=== PATIENT | female | born 1940 | race Caucasian/White ===

== ENCOUNTER 2016-06-25 06:57 | Emergency (ER) | payer OTHER, MEDICARE ==
[2016-06-25 07:19] VITALS: TEMP 97.9; BMI 20.1
--- NOTE | 2016-06-25 07:28 | PDOC ---
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 No fall, no recent trauma. Patient states she suddenly experienced pain initially on her left thigh, approximately 5 days ago. She states that one Tuesday, her pain migrated to down to her proximal knee. She also notes increasing swelling on the left knee. Patient expresses concern as she has a history of DVT x2 on the leg. No chest pain, shortness of breath, unsteady gait. Allergies: Omeprazole. Sulfonamide antibiotics. Past Surgical History: Appendectomy. Shoulder and knee surgery Social History: No tobacco, ETOH and recreational drug use. Primary Care Physician: Dr. Barron Gallegos [phone] <Kathia Traylor - Last Filed: 06/25/16 10:30> <Amy Byrne - Last Filed: 06/25/16 13:58> - General Chief Complaint: Pain, Acute Stated Complaint: PAIN IN LEFT LEG Time Seen by Provider: 06/25/16 07:16 Past History <Kathia Traylor - Last Filed: 06/25/16 10:30> - Past Medical History Anemia: No Asthma: No Cancer: No Cardiac Disorders: No CVA: No COPD: No CHF: No DVT: Yes Dementia: No Diabetes: No GI Disorders: Yes (gerd) Disorders: No HTN: Yes Hypercholesterolemia: Yes Liver Disease: No Seizures: No Thyroid Disease: No Other medical history: DVT X2 LEFT LEG - Surgical History Abdominal Surgery: No Appendectomy: Yes Cardiac Surgery: No Cholecystectomy: No Lung Surgery: No Neurologic Surgery: No Orthopedic Surgery: Yes (SHOULDER, KNEE) - Psycho/Social/Smoking Cessation Hx Anxiety: No Suicidal Ideation: No Smoking Status: No Smoking History: Never smoked Have you smoked in the past 12 months: No Number of Cigarettes Smoked Daily: 0 Information on smoking cessation initiated: No Hx Alcohol Use: No Drug/Substance Use Hx: No Substance Use Type: None Hx Substance Use Treatment: No <Amy Byrne - Last Filed: 06/25/16 13:58> - Past Medical History Allergies/Adverse Reactions: Allergies Allergy/AdvReac Type Severity Reaction Status Date / Time omeprazole Allergy Verified 06/25/16 07:13 Sulfa (Sulfonamide Allergy Verified 06/25/16 07:13 Antibiotics) [Sulfa(Sulfonamide Antibiotics)] Home Medications: Ambulatory Orders Losartan Potassium 100 mg PO HS 02/11/16 Losartan Potassium [Cozaar -] 50 mg PO AM 02/11/16 Lubiprostone [Amitiza] 24 mcg PO BID 02/11/16 Simvastatin [Zocor -] 20 mg PO HS 02/11/16 Warfarin Sodium [Coumadin] 2.5 mg PO DAILY 02/11/16 Metoprolol Succinate [Toprol Xl -] 25 mg PO DAILY 06/25/16 Ranitidine [Zantac -] 150 mg PO BID 06/25/16 Review of Systems - Review of Systems Able to Perform ROS?: Yes Comments:: 06/25/16 07:54 GENERAL/CONSTITUTIONAL: No fever or chills. No weakness. MUSCULOSKELETAL: Yes: +Left leg pain. No neck or back pain. <Kathia Traylor - Last Filed: 06/25/16 10:30> *Physical Exam - Vital Signs Last Vital Signs Temp Pulse Resp BP Pulse Ox 97.9 F 94 H 18 133/95 99 06/25/16 07:10 06/25/16 07:10 06/25/16 07:10 06/25/16 07:10 06/25/16 07:10 <Kathia Traylor - Last Filed: 06/25/16 10:30> - Vital Signs Last Vital Signs Temp Pulse Resp BP Pulse Ox 97.9 F 94 H 18 133/95 99 06/25/16 07:10 06/25/16 07:10 06/25/16 07:10 06/25/16 07:10 06/25/16 07:10 - Physical Exam Comments: GENERAL: Awake, alert, and fully oriented, in no acute distress HEAD: No signs of trauma EXTREMITIES: L knee with mod effusion, dec ROM due to pain. No ligamentous laxity. No warmth, erythema. +Tenderness to L posterior knee. Remainder of extremities with normal range of motion, no edema. No clubbing or cyanosis. No cords, erythema. No calf tenderness NEUROLOGICAL: Cranial nerves II through XII grossly intact. Normal speech, normal gait SKIN: Warm, Dry, normal turgor, no rashes or lesions noted. <Amy Byrne - Last Filed: 06/25/16 13:58> ED Treatment Course - LABORATORY CBC & Chemistry Diagram: 06/25/16 07:50 06/25/16 07:50 - RADIOLOGY Radiograph Interpretation: 06/25/16 10:30 EXAM: RAD/KNEE 3 POS-LEFT IMPRESSION: X-ray of the left knee, 3 views. There are mild osteoarthritic changes in the knee joint. Faint calcification of the medial and to a lesser extent lateral knee joint consistent with chondrocalcinosis. There are minimal osteoarthritic changes involving the patellofemoral joint . A small suprapatellar joint effusion is present. The alignment is satisfactory without evidence of a fracture or dislocation EXAM: US/DUPLEX VASCUL US-1 LEG Pain. IMPRESSION: Left leg Doppler ultrasound. Grayscale, pulsed Doppler and color Doppler interrogation of the left lower extremity deep venous system was performed. The left common femoral vein, superficial femoral vein, popliteal and posterior tibial vein were identified with a normal phasic wave form, adequate compressibility and adequate response to augmentation. Visualized portion of the greater saphenous and deep femoral vein are patent. No Mathews's cyst is identified within the popliteal fossa Note is made of suprapatellar joint effusion <Kathia Traylor - Last Filed: 06/25/16 10:30> - LABORATORY CBC & Chemistry Diagram: 06/25/16 07:50 06/25/16 07:50 <Amy Byrne - Last Filed: 06/25/16 13:58> Medical Decision Making - Medical Decision Making Patient declined pain medication. The effusion may possibly be a hemarthrosis, however, INR is not supratherapeutic. Knee is not erythematous or warm. Recommended outpatient ortho f/u. <Amy Byrne - Last Filed: 06/25/16 13:58> *DC/Admit/Observation/Transfer - Attestations Scribe Attestion: 06/25/16 08:14 Documentation prepared by Kathia Traylor, acting as medical office secretary for Amy Byrne MD. <KymberlyKathia - Last Filed: 06/25/16 10:30> - Discharge Dispostion Admit: No <Amy Byrne - Last Filed: 06/25/16 13:58> Diagnosis at time of Disposition: Knee pain Qualifiers: Laterality: left Chronicity: acute Qualified Code(s): M25.562 - Pain in left knee - Discharge Dispostion Disposition: HOME Condition at time of disposition: Stable - Referrals Referrals: Kelechi Milian MD [Staff Physician] - Barron Gallegos MD [Primary Care Provider] - Glen Morales MD [Staff Physician] - - Patient Instructions Printed Discharge Instructions: DI for Knee Pain
[2016-06-25 08:10] LABS: BASOPHIL 0.7 % (0-2.0); EOSINOPHIL 1.8 % (0-4.5); MCHC 33.8 g/dl (32.0-36.0); MEAN CELL VOLUME 88.7 fl (80-96); MEAN PLT VOLUME 7.6 fl (7.5-11.1); NEUTROPHILS 68.5 % (42.8-82.8); PLATELET COUNT 295 K/MM3 (134-434); RDW 12.9 % (11.6-15.6)
[2016-06-25 08:46] LABS: INR 2.49 (0.82-1.09); PROTHROMBIN TIME (PATIENT) 27.9 SEC (9.98-11.88)
[2016-06-25 09:03] LABS: ALBUMIN 3.5 g/dl (3.4-5.0); ALK PHOS 86 U/L (45-117); ANION GAP 10 (8-16); BILIRUBIN,TOTAL 0.4 mg/dL (0.2-1.0); CALCIUM 8.8 mg/dL (8.5-10.1); CO2 25 mmol/L (21-32); CREATININE 0.7 mg/dL (0.55-1.02); GLUCOSE,RANDOM 81 mg/dL (74-106); SGOT/AST 20 U/L (15-37); SGPT/ALT 23 U/L (12-78); TOT PROT 6.7 g/dl (6.4-8.2)
[2016-06-25 10:17] VITALS: BP 135/88; PULSE 85
== END 2016-06-25 10:30 | disposition home or self-care (01) ==
LOC: JER 06:57
DX: M79.605 Pain in left leg (principal); K21.9 Gastro-esophageal reflux disease without esophagitis; I10 Essential (primary) hypertension; E78.00 Pure hypercholesterolemia, unspecified; Z86.718 Personal history of other venous thrombosis and embolism; Z79.01 Long term (current) use of anticoagulants
CPT/HCPCS: 36415; 73562-TC-LT; 80053; 85025; 85610; 93971-TC; 99283-25

== ENCOUNTER → 2016-11-09 | Emergency (ER) | payer OTHER, MEDICARE ==
[~2016-11-09] MED LIST: SODIUM CHLORIDE 1,000 ML IV STA
--- NOTE | 2016-11-09 10:38 | PDOC ---
History of Present Illness - General History Source: Patient Exam Limitations: No Limitations - History of Present Illness Initial Comments: 11/09/16 11:07 The patient is a 76-year-old woman, with a significant past medical history of hypertension, hypercholesterolemia, left lower extremity deep venous thrombosis x2 (on Coumadin) and gastroesophageal reflux disease who presents to the emergency department via EMS with complaints of nausea and vomiting. Patient states that she was in her usual state of health this morning, when she proceeded to attend [employer]. She states that while she was at [employer], she felt slightly lightheaded and nauseous. She also rpeorts one episode of vomiting. She denies any abdominal pain, diarrhea, constipation, urinary complaints, fever , chills. She reports that she had her INR recently checked which was low to a reportedly 1.5, therefore she took 5mg of her Coumadin yesterday and this morning. She denies fever, chills, diaphoresis, generalized weakness. She denies chest pain, shortness of breath, cough Allergies: Omeprazole. Sulfonamide antibiotics. Past Surgical History: Appendectomy. Shoulder and knee surgery. Social History: No tobacco, EtOH and recreational drug use. Primary Care Physician: Dr. Barron Gallegos [phone] <Kathia Traylor - Last Filed: 11/09/16 12:29> <Amy Byrne - Last Filed: 11/09/16 12:33> - General Chief Complaint: Nausea/Vomiting Stated Complaint: VOMITING Time Seen by Provider: 11/09/16 10:29 Past History <Kathia Traylor - Last Filed: 11/09/16 12:29> - Past Medical History Anemia: No Asthma: No Cancer: No Cardiac Disorders: No CVA: No COPD: No CHF: No DVT: Yes Dementia: No Diabetes: No GI Disorders: Yes (gerd) Disorders: No HTN: Yes Hypercholesterolemia: Yes Liver Disease: No Seizures: No Thyroid Disease: No - Surgical History Abdominal Surgery: No Appendectomy: Yes Cardiac Surgery: No Cholecystectomy: No Lung Surgery: No Neurologic Surgery: No Orthopedic Surgery: Yes (SHOULDER, KNEE) - Psycho/Social/Smoking Cessation Hx Anxiety: No Suicidal Ideation: No Smoking Status: No Smoking History: Never smoked Have you smoked in the past 12 months: No Number of Cigarettes Smoked Daily: 0 Hx Alcohol Use: No Drug/Substance Use Hx: No Substance Use Type: None Hx Substance Use Treatment: No <Amy Byrne - Last Filed: 11/09/16 12:33> - Past Medical History Allergies/Adverse Reactions: Allergies Allergy/AdvReac Type Severity Reaction Status Date / Time omeprazole Allergy Verified 11/09/16 10:51 Sulfa (Sulfonamide Allergy Verified 11/09/16 10:51 Antibiotics) [Sulfa(Sulfonamide Antibiotics)] Home Medications: Ambulatory Orders Losartan Potassium 100 mg PO HS 02/11/16 Losartan Potassium [Cozaar -] 50 mg PO AM 02/11/16 Lubiprostone [Amitiza] 24 mcg PO BID 02/11/16 Simvastatin [Zocor -] 20 mg PO HS 02/11/16 Warfarin Sodium [Coumadin] 2.5 mg PO DAILY 02/11/16 Metoprolol Succinate [Toprol Xl -] 25 mg PO DAILY 06/25/16 Ranitidine [Zantac -] 150 mg PO BID 06/25/16 Ondansetron [Zofran -] 4 mg PO TID PRN #21 tablet 11/09/16 Review of Systems - Review of Systems Able to Perform ROS?: Yes Comments:: 11/09/16 11:08 GENERAL/CONSTITUTIONAL: No fever or chills. No weakness. HEAD, EYES, EARS, NOSE AND THROAT: No change in vision. No ear pain or discharge. No sore throat. CARDIOVASCULAR: No chest pain or shortness of breath. RESPIRATORY: No cough, wheezing, or hemoptysis. GASTROINTESTINAL: Yes: Nausea.Vomiting. No diarrhea or constipation. GENITOURINARY: No dysuria, frequency, or change in urination. MUSCULOSKELETAL: No joint or muscle swelling or pain. No neck or back pain. SKIN: No rash NEUROLOGIC: Yes: Lightheadedness. No headache, vertigo, loss of consciousness, or change in strength/sensation. ENDOCRINE: No increased thirst. No abnormal weight change. HEMATOLOGIC/LYMPHATIC: Yes: history of blood clots. No anemia, easy bleeding. ALLERGIC/IMMUNOLOGIC: No hives or skin allergy. <Kathia Traylor - Last Filed: 11/09/16 12:29> *Physical Exam - Vital Signs Last Vital Signs Temp Pulse Resp BP Pulse Ox 98.1 F 54 L 18 160/52 100 11/09/16 10:42 11/09/16 10:42 11/09/16 10:42 11/09/16 11:05 11/09/16 10:42 - Physical Exam Comments: 11/09/16 11:09 GENERAL: Awake, alert, and fully oriented, in no acute distress HEAD: No signs of trauma EYES: PERRLA, EOMI, sclera anicteric, conjunctiva clear ENT: Auricles normal inspection, hearing grossly normal, nares patent, oropharynx clear without exudates. Moist mucosa NECK: Normal ROM, supple, no lymphadenopathy, JVD, or masses LUNGS: Breath sounds equal, clear to auscultation bilaterally. No wheezes, and no crackles HEART: Regular rate and rhythm, normal S1 and S2, no murmurs, rubs or gallops ABDOMEN: Soft, nontender, normoactive bowel sounds. No guarding, no rebound. No masses EXTREMITIES: Normal range of motion, no edema. No clubbing or cyanosis. No cords, erythema, or tenderness NEUROLOGICAL: Cranial nerves II through XII grossly intact. Normal speech, normal gait <Kathia Traylor - Last Filed: 11/09/16 12:29> ED Treatment Course - LABORATORY CBC & Chemistry Diagram: 11/09/16 10:38 11/09/16 10:38 <Kathia Traylor - Last Filed: 11/09/16 12:29> - LABORATORY CBC & Chemistry Diagram: 11/09/16 10:38 11/09/16 10:38 <Amy Byrne - Last Filed: 11/09/16 12:33> Medical Decision Making - Medical Decision Making 11/09/16 12:33 Pt reports no nausea, no abd pain. Abd is soft and benign, no signs of acute abdomen. Stable for DC home. <Amy Byrne - Last Filed: 11/09/16 12:33> *DC/Admit/Observation/Transfer - Attestations Scribe Attestion: 11/09/16 11:09 Documentation prepared by Kathia Traylor, acting as forensic medical examiner for Amy Byrne MD. <Kathia Traylor - Last Filed: 11/09/16 12:29> - Discharge Dispostion Admit: No <Amy Byrne Last Filed: 11/09/16 12:33> Diagnosis at time of Disposition: Vomiting Qualifiers: Vomiting type: unspecified Vomiting Intractability: non-intractable Nausea presence: with nausea Qualified Code(s): R11.2 - Nausea with vomiting, unspecified - Discharge Dispostion Disposition: HOME Condition at time of disposition: Improved - Prescriptions Prescriptions: Ondansetron [Zofran -] 4 mg PO TID PRN #21 tablet PRN Reason: Nausea And/Or Vomiting - Referrals Referrals: Barron Gallegos MD [Primary Care Provider] - - Patient Instructions Printed Discharge Instructions: DI for Vomiting -- Adult
[2016-11-09 11:10] VITALS: BMI 18.8
[2016-11-09 11:22] LABS: BASOPHIL 0.8 % (0-2.0); EOSINOPHIL 2.1 % (0-4.5); MCH 29.4 pg (25.7-33.7); MEAN CELL VOLUME 88.9 fl (80-96); MEAN PLT VOLUME 7.9 fl (7.5-11.1); NEUTROPHILS 70.1 % (42.8-82.8); PLATELET COUNT 258 K/MM3 (134-434); RDW 13.3 % (11.6-15.6); URINE APPEARANCE CLEAR; URINE BILIRUBIN NEGATIVE (NEGATIVE); URINE BLOOD NEGATIVE (NEGATIVE); URINE COLOR YELLOW; URINE GLUCOSE (UA) NEGATIVE (NEGATIVE); URINE KETONE NEGATIVE (NEGATIVE); URINE LEUK ESTERASE NEGATIVE (NEGATIVE); URINE NITRITE NEGATIVE (NEGATIVE); URINE PROTEIN NEGATIVE (NEGATIVE); URINE UROBILINOGEN NEGATIVE E.U./dl (0.2-1.0); WHITE BLOOD COUNT 6.4 K/mm3 (4.0-10.0)
[2016-11-09 11:45] LABS: ALBUMIN 3.3 g/dl (3.4-5.0); ANION GAP 6 (8-16); BILIRUBIN,TOTAL 0.2 mg/dL (0.2-1.0); CALCIUM 9.2 mg/dL (8.5-10.1); CO2 31 mmol/L (21-32); COCKROFT - GAULT 51.935; CREATININE 0.7 mg/dL (0.55-1.02); GLUCOSE,RANDOM 101 mg/dL (74-106); SGOT/AST 22 U/L (15-37); SGPT/ALT 23 U/L (12-78); TOT PROT 6.2 g/dl (6.4-8.2)
[2016-11-09 11:46] LABS: ALK PHOS 59 U/L (45-117)
--- NOTE | 2016-11-09 11:49 | EKG ---
Test Reason : Blood Pressure : / mmHG Vent. Rate : 057 BPM Atrial Rate : 057 BPM P-R Int : 148 ms QRS Dur : 078 ms QT Int : 444 ms P-R-T Axes : 056 031 062 degrees QTc Int : 432 ms SINUS BRADYCARDIA OTHERWISE NORMAL ECG WHEN COMPARED WITH ECG OF 11-FEB-2016 13:57, NO SIGNIFICANT CHANGE WAS FOUND Confirmed by FERNANDO HYLTON MD ([id number]) on 11/09/2016 11:49:18 AM Referred By: Confirmed By:FERNANDO HYLTON MD
[2016-11-09 11:56] LABS: INR 1.91 (0.82-1.09); PROTHROMBIN TIME (PATIENT) 21.3 SEC (9.98-11.88)
[2016-11-09 12:26] VITALS: BP 127/77; PULSE 74; TEMP 98.4
== END | disposition home or self-care (01) ==
LOC: JER 10:22
DX: R11.2 Nausea with vomiting, unspecified (principal); I10 Essential (primary) hypertension; E78.00 Pure hypercholesterolemia, unspecified; I82.402 Acute embolism and thrombosis of unspecified deep veins of left lower extremity; K21.9 Gastro-esophageal reflux disease without esophagitis; Z79.01 Long term (current) use of anticoagulants
CPT/HCPCS: 36415; 71020-TC; 80053; 81003; 83690; 85025; 85610; 93005; 93010; 99284-25

== ENCOUNTER 2016-11-17 09:41 | Observation (INO) | payer OTHER, MEDICARE ==
[2016-11-17] MEDS: ASPIRIN 81 MG CHEWABLE TABLETS PO ONE ×2 (10:38→10:43)
[2016-11-17] MEDS ORDERED: ASPIRIN 81 MG CHEWABLE TABLETS ONE (10:39)
--- NOTE | 2016-11-17 10:50 | PDOC ---
History of Present Illness - General History Source: Patient Exam Limitations: No Limitations <Skinny Campbell - Last Filed: 11/17/16 11:28> <Gideon Mendieta - Last Filed: 11/17/16 13:36> - General Chief Complaint: Chest Pain Stated Complaint: CHEST PAIN Time Seen by Provider: 11/17/16 09:48 - History of Present Illness Initial Comments: 11/17/16 11:28 The patient is a 76 year old female, BIBA with a significant past medical history of HTN, hypercholesterolemia LLE DVT x2 (on coumadin), and GERD who presents to the emergency department with an episode of lightheadedness, chest pressure, UE numbness/tingling, and sweating today. The patient reports walking around in the yard with her , and upon entering her house she reports having being weakness, chest pressure and profuse sweating. She reports this episode lasted about 45 mins, throughout her ambulance transport into the ER, and notes still some chest pressure upon ED arrival. She reports during this episode taking her BP noting it to be 90/72. She denies any previous strenuous activity today. She reports having a similar episode last year in December and had a nuclear stress test. Pt denies any current complaints states she feels almost back to normal currently . She also notes weight loss of 20 pounds over the past month and is being evaluated by her PMD for this. She denies any dietary changes or increase in exercise. She denies recent fevers, chills, headache or dizziness. She denies recent nausea, vomit, diarrhea or constipation. She denies recent dysuria, frequency, urgency or hematuria. Allergies: NKA Past surgical history: None reported. Social history: Nonsmoker. Denies EtOH use and recreational drug use. Primary Care Physician: Dr Bonilla Family History: Father of [place] [employer] Machine Operator: (Skinny Campbell) Past History <Skinny Campbell - Last Filed: 11/17/16 11:28> - Past Medical History Anemia: No Asthma: No Cancer: No Cardiac Disorders: No CVA: No COPD: No CHF: No DVT: Yes Dementia: No Diabetes: No GI Disorders: Yes (gerd) Disorders: No HTN: Yes Hypercholesterolemia: Yes Liver Disease: No Seizures: No Thyroid Disease: No - Surgical History Abdominal Surgery: No Appendectomy: Yes Cardiac Surgery: No Cholecystectomy: No Lung Surgery: No Neurologic Surgery: No Orthopedic Surgery: Yes (SHOULDER, KNEE) - Psycho/Social/Smoking Cessation Hx Anxiety: No Suicidal Ideation: No Smoking Status: No Smoking History: Never smoked Have you smoked in the past 12 months: No Number of Cigarettes Smoked Daily: 0 Information on smoking cessation initiated: No Hx Alcohol Use: No Drug/Substance Use Hx: No Substance Use Type: None Hx Substance Use Treatment: No <Gideon Mendieta - Last Filed: 11/17/16 13:36> - Past Medical History Allergies/Adverse Reactions: Allergies Allergy/AdvReac Type Severity Reaction Status Date / Time omeprazole Allergy Verified 11/09/16 10:51 Sulfa (Sulfonamide Allergy Verified 11/09/16 10:51 Antibiotics) [Sulfa(Sulfonamide Antibiotics)] Home Medications: Ambulatory Orders Losartan Potassium 100 mg PO HS 02/11/16 Losartan Potassium [Cozaar -] 50 mg PO AM 02/11/16 Lubiprostone [Amitiza] 24 mcg PO BID 02/11/16 Simvastatin [Zocor -] 20 mg PO HS 02/11/16 Warfarin Sodium [Coumadin] 2.5 mg PO DAILY 02/11/16 Metoprolol Succinate [Toprol Xl -] 25 mg PO DAILY 06/25/16 Ranitidine [Zantac -] 150 mg PO BID 06/25/16 Ondansetron [Zofran -] 4 mg PO TID PRN #21 tablet 11/09/16 Cardiac Specific PMH - Complaint Specific PMHX Pacemaker: No <Gideon Mendieta - Last Filed: 11/17/16 13:36> Review of Systems - Review of Systems Able to Perform ROS?: Yes <Skinny Campbell - Last Filed: 11/17/16 11:28> <Gideon Mendieta - Last Filed: 11/17/16 13:36> - Review of Systems Comments:: 11/17/16 11:28 CONSTITUTIONAL: No reported: Fever, Chills, Diaphoresis, Generalized Weakness, Malaise, Loss of Appetite HEENT: No reported: Rhinorrhea, Nasal Congestion, Throat Pain, Throat Swelling, Difficulty Swallowing, Mouth Swelling, Ear Pain, Eye Pain, Visual Changes CARDIOVASCULAR: +chest pressure. No reported: Syncope, Palpitations, Irregular Heart Rate, Lightheadedness, Peripheral Edema RESPIRATORY: +SOB. No reported: Cough, Wheezing, Stridor, Hemoptysis GASTROINTESTINAL: No reported: Abdominal pain, Abdominal Distension, Nausea, Vomiting, Diarrhea, Constipation, Melena, Hematochezia GENITOURINARY: No reported: Dysuria, Frequency, Urgency, Hesitancy, Flank Pain, Genital Pain MUSCULOSKELETAL: No reported: Myalgia, Arthralgia, Joint Swelling, Back pain, Neck Pain SKIN: No reported: Rash, Itching, Pallor HEMATOLOGIC/IMMUNOLOGIC: No reported: Easy Bleeding, Easy Bruising, Lymphadenopathy, Frequent infections ENDOCRINE: +Weight loss. No reported: Unexplained Weight Gain, Heat Intolerance, Cold Intolerance NEUROLOGIC: No reported: Headache, Focal Weakness, Paresthesias, Vertigo, Lightheadedness, Unsteady Gait, Seizure, Mental Status Changes, Incontinence PSYCHIATRIC: No reported: Anxiety, Depression (Skinny Campbell) *Physical Exam <Skinny Campbell - Last Filed: 11/17/16 11:28> <Gideon Mendieta - Last Filed: 11/17/16 13:36> - Vital Signs Last Vital Signs Temp Pulse Resp BP Pulse Ox 97.4 F L 63 24 164/72 100 11/17/16 09:45 11/17/16 09:45 11/17/16 09:45 11/17/16 09:45 11/17/16 09:45 - Physical Exam Comments: 11/17/16 11:28 GENERAL: The patient is awake, alert, and fully oriented, Nontoxic - in no acute distress. HEAD: Normocephalic, atraumatic. EYES: extraocular movements intact, sclera anicteric, conjunctiva clear. ENT: Normal voice, Moist mucous membranes. NECK: Normal range of motion, supple LUNGS: Breath sounds equal, clear to auscultation bilaterally. No wheezes, no rhonchi, no rales. HEART: Regular rate and rhythm, without murmur, rub or gallop. ABDOMEN: Soft, nontender, normoactive bowel sounds. No guarding, no rebound.No CVA tenderness EXTREMITIES: Normal range of motion, no edema. No clubbing or cyanosis. No cords , erythema, or tenderness. NEUROLOGICAL: No facial asymmetry, Normal speech. PSYCH: Normal mood, normal affect. SKIN: Warm, Dry, normal turgor. (Skinny Campbell) Heart Score/ECG Review <Skinny Campbell - Last Filed: 11/17/16 11:28> <Gideon Mendieta - Last Filed: 11/17/16 13:36> - ECG Impressions Comment:: 11/17/16 11:40 Twelve-lead EKG was performed and reviewed by me. There is normal sinus rhythm with a normal rate. Rate is 63 The axis is normal. The intervals are normal. There is normal R wave progression There are no ST or T wave abnormalities. Impression: Normal twelve-lead EKG (Gideon Mendieta) ED Treatment Course - LABORATORY CBC & Chemistry Diagram: 11/17/16 11:20 11/17/16 11:20 <Skinny Campbell - Last Filed: 11/17/16 11:28> - LABORATORY CBC & Chemistry Diagram: 11/17/16 11:20 11/17/16 11:20 <Gideon Mendieta - Last Filed: 11/17/16 13:36> - ADDITIONAL ORDERS Additional order review: Laboratory Results 11/17/16 11/17/16 11:20 11:20 INR 2.87 H D Sodium 139 Potassium 4.6 Chloride 103 Carbon Dioxide 26 Anion Gap 10 BUN 14 D Creatinine 0.8 D Creat Clearance w eGFR > 60 Random Glucose 151 H D Calcium 9.2 Magnesium 1.7 L Total Bilirubin 0.5 D AST 23 ALT 22 Alkaline Phosphatase 79 D Creatine Kinase 83 Troponin I < 0.02 Total Protein 6.5 Albumin 3.2 L 11/17/16 11:20 RBC 5.04 MCV 88.8 MCHC 32.9 RDW 13.1 MPV 8.0 Neutrophils % 54.5 D Lymphocytes % 34.0 D Monocytes % 7.7 Eosinophils % 2.9 Basophils % 0.9 - RADIOLOGY Radiology Studies Ordered: Category Date Time Status CHEST X-RAY PORTABLE* [RAD] Stat Radiology 11/17/16 10:18 Completed - Medications Given in the ED: ED Medications Discontinued Medications Generic Name Dose Route Start Last Admin Trade Name Freq PRN Reason Stop Dose Admin Aspirin 162 mg 11/17/16 10:17 11/17/16 10:43 Asa - PO 11/17/16 10:18 Not Given ONCE ONE Medical Decision Making <Skinny Campbell - Last Filed: 11/17/16 11:28> <Gideon Mendieta - Last Filed: 11/17/16 13:36> - Medical Decision Making 11/17/16 10:42 76y F hx of BIBA hx of htn, hl, DVT on coumadin, GERD presents with episode of diaphoresis, cp, sob lasting approx 45 min this morning after coming [place] in from the [place]. pt currently asymptomatic. pt does note that when she first arrived and received the ekg she felt the sypmtoms. consider possible acs vs vagal episode will obtainta trops, ekg to screen for acs cxr labs will reassess and discuss with dr. altamirano regarding disposition A portion of this note was documented by scribe services under my direction. I have reviewed the details of the note, within reason, and agree with the documentation with the following case summary and management plan written by me 11/17/16 12:[address] barahona he will see the pt 11/17/16 13:[address] sosac requested obseration will notify dr. eliana matute for tele 11/17/16 13:[address] lopez agree with observation Case discussed in detail with admitting physician including history, physical exam and ancillary studies. Admitting physician has assumed care for the patient, will follow all pending diagnostics and will complete the evaluation and treatment. (Gideon Mendieta) *DC/Admit/Observation/Transfer <Skinny Campbell - Last Filed: 11/17/16 11:28> - Discharge Dispostion Admit: Yes <Gideon Mendieta - Last Filed: 11/17/16 13:36> Diagnosis at time of Disposition: Chest pain Qualifiers: Chest pain type: unspecified Qualified Code(s): R07.9 - Chest pain, unspecified - Discharge Dispostion Condition at time of disposition: Stable - Referrals Referrals: Barron Gallegos MD [Primary Care Provider] - - Patient Instructions Printed Discharge Instructions: DI for Chest Pain - Attestations Scribe Attestion: 11/17/16 11:28 Documentation prepared by Skinny Campbell, acting as medical management trainer for Gideon Mendieta MD. (Skinny Campbell)
[2016-11-17 11:33] LABS: BASOPHIL 0.9 % (0-2.0); EOSINOPHIL 2.9 % (0-4.5); MCH 29.2 pg (25.7-33.7); MCHC 32.9 g/dl (32.0-36.0); MEAN CELL VOLUME 88.8 fl (80-96); NEUTROPHILS 54.5 % (42.8-82.8); PLATELET COUNT 314 K/MM3 (134-434); RDW 13.1 % (11.6-15.6); WHITE BLOOD COUNT 6.8 K/mm3 (4.0-10.0)
[2016-11-17 11:48] LABS: INR 2.87 (0.82-1.09); PROTHROMBIN TIME (PATIENT) 32.2 SEC (9.98-11.88)
[2016-11-17 11:55] LABS: ALBUMIN 3.2 g/dl (3.4-5.0); ANION GAP 10 (8-16); BILIRUBIN,TOTAL 0.5 mg/dL (0.2-1.0); CALCIUM 9.2 mg/dL (8.5-10.1); CO2 26 mmol/L (21-32); CREATININE 0.8 mg/dL (0.55-1.02); GLUCOSE,RANDOM 151 mg/dL (74-106); SGPT/ALT 22 U/L (12-78); TOT PROT 6.5 g/dl (6.4-8.2)
[2016-11-17 11:58] LABS: ALK PHOS 79 U/L (45-117); TROPONIN I < 0.02 ng/ml (0.00-0.05)
--- NOTE | 2016-11-17 12:11 | CON.CARD ---
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 The patient reports walking around in the yard with her , and upon entering her house she reports having being weakness, chest pressure and profuse sweating. She reports this episode lasted about 45 mins, throughout her ambulance transport into the ER, and notes still some chest pressure upon ED arrival. She reports during this episode taking her BP noting it to be 90/72. She denies any previous strenuous activity today. She reports having a similar episode last year in December and had a nuclear stress test. Pt denies any current complaints states she feels almost back to normal currently . She also notes weight loss of 20 pounds over the past month and is being evaluated by her PMD for this. She denies any dietary changes or increase in exercise. She denies recent fevers, chills, headache or dizziness. She denies recent nausea, vomit, diarrhea or constipation. She denies recent dysuria, frequency, urgency or hematuria. Allergies: NKA Past surgical history: None reported. Social history: Nonsmoker. Denies EtOH use and recreational drug use. Primary Care Physician: Dr Bonilla Family History: Father of [place] [employer]: ([facility]) - History Source History Provided By: Patient, Family Member, Medical Record - Past Medical History Cardio/Vascular: Yes: Deep Vein Thrombosis, HTN, Hyperlipdemia. No: AFIB, Aneurysm, Aortic Insufficiency, Aortic Stenosis, CAD, CHF, [place], Mitral Insufficiency, Mitral Stenosis, Murmur, Pulmonary Hypertension, Other Gastrointestinal: Yes: GERD. No: Ascites, Cancer, Constipation, Crohn's Disease , Diverticulitis, Diverticulosis, Esophageal Varices, Gastritis, GI Bleed, Hemorrhoids, Hiatal Hernia, Inflamatory Bowel Disease, Irritable Bowel Disease, Pancreatitis, Peptic Ulcer Disease, Ulcerative Colitis, Other Musculoskeletal: Yes: Chronic low back pain, Osteoarthritis ENT: Yes: Other (tinnitus) Endocrine: Yes: Other (Developed hypotension and electolyte changes while being tapered off from prednisone) - Past Surgical History Past Surgical History: Yes: Colonoscopy - Alcohol/Substance Use Hx Alcohol Use: No - Smoking History Smoking history: Never smoked Have you smoked in the past 12 months: No Aproximately how many cigarettes per day: 0 - Social History ADL: Independent Home Medications - Allergies Allergies/Adverse Reactions: Allergies Allergy/AdvReac Type Severity Reaction Status Date / Time omeprazole Allergy Verified 11/09/16 10:51 Sulfa (Sulfonamide Allergy Verified 11/09/16 10:51 Antibiotics) [Sulfa(Sulfonamide Antibiotics)] - Home Medications Home Medications: Ambulatory Orders Losartan Potassium 100 mg PO HS 02/11/16 Losartan Potassium [Cozaar -] 50 mg PO AM 02/11/16 Lubiprostone [Amitiza] 24 mcg PO BID 02/11/16 Simvastatin [Zocor -] 20 mg PO HS 02/11/16 Warfarin Sodium [Coumadin] 2.5 mg PO DAILY 02/11/16 Metoprolol Succinate [Toprol Xl -] 25 mg PO DAILY 06/25/16 Ranitidine [Zantac -] 150 mg PO BID 06/25/16 Ondansetron [Zofran -] 4 mg PO TID PRN #21 tablet 11/09/16 Family Disease History - Family Disease History Family Disease History: Heart Disease: Brother (brother had quadruple bypass), Other: Father ( CVA at 60) Review of Systems - Review of Systems Constitutional: reports: No Symptoms Eyes: reports: No Symptoms HENT: reports: No Symptoms Neck: reports: No Symptoms Cardiovascular: reports: Chest Pain Gastrointestinal: reports: No Symptoms Genitourinary: reports: No Symptoms Breasts: reports: No Symptoms Reported Musculoskeletal: reports: No Symptoms Integumentary: reports: No Symptoms Neurological: reports: No Symptoms Endocrine: reports: No Symptoms Hematology/Lymphatic: reports: No Symptoms Psychiatric: reports: No Symptoms Vital Signs: Vital Signs Temperature 97.4 F L 11/17/16 09:45 Pulse Rate 63 11/17/16 09:45 Respiratory Rate 24 11/17/16 09:45 Blood Pressure 164/72 11/17/16 09:45 O2 Sat by Pulse Oximetry (%) 100 11/17/16 09:45 Constitutional: Yes: Well Nourished, No Distress, Calm Eyes: Yes: WNL, Conjunctiva Clear, EOM Intact HENT: Yes: WNL, Atraumatic, Normocephalic Neck: Yes: WNL, Supple, Trachea Midline Respiratory: Yes: WNL, Regular, CTA Bilaterally Gastrointestinal: Yes: WNL, Normal Bowel Sounds Renal/: Yes: WNL Cardiovascular: Yes: WNL, Regular Rate and Rhythm Musculoskeletal: Yes: WNL Extremities: Yes: WNL Integumentary: Yes: WNL Neurological: Yes: WNL, Alert, Oriented ...Motor Strength: WNL Psychiatric: Yes: WNL, Alert, Oriented - Other Data Labs, Other Data: CBC, BMP 11/17/16 11:20 INR, PTT INR 2.87 (0.82-1.09) H D 11/17/16 11:20 Laboratory Tests 11/17/16 11/17/16 11/17/16 11:20 11:20 11:20 WBC 6.8 RBC 5.04 Hgb 14.7 Hct 44.7 MCV 88.8 MCHC 32.9 RDW 13.1 Plt Count 314 MPV 8.0 Neutrophils % 54.5 D Lymphocytes % 34.0 D Monocytes % 7.7 Eosinophils % 2.9 Basophils % 0.9 INR 2.87 H D Sodium 139 Potassium 4.6 Chloride 103 Carbon Dioxide 26 Anion Gap 10 BUN 14 D Creatinine 0.8 D Creat Clearance w eGFR > 60 Random Glucose 151 H D Calcium 9.2 Magnesium 1.7 L Total Bilirubin 0.5 D AST 23 ALT 22 Alkaline Phosphatase 79 D Creatine Kinase 83 Troponin I < 0.02 Total Protein 6.5 Albumin 3.2 L Imaging - Results Chest X-ray: Image Reviewed EKG: Image Reviewed (s tash) Problem List - Problems (1) Chest tightness Code(s): R07.89 - OTHER CHEST PAIN (2) Cortisol deficiency Code(s): E27.49 - OTHER ADRENOCORTICAL INSUFFICIENCY (3) CHAPMAN (dyspnea on exertion) Code(s): R06.09 - OTHER FORMS OF DYSPNEA (4) DVT (deep venous thrombosis) Code(s): I82.409 - ACUTE EMBOLISM AND THOMBOS UNSP DEEP VN UNSP LOWER EXTREMITY (5) Generalized weakness Code(s): R53.1 - WEAKNESS (6) HTN (hypertension) Code(s): I10 - ESSENTIAL (PRIMARY) HYPERTENSION (7) Hyperlipidemia Code(s): E78.5 - HYPERLIPIDEMIA, UNSPECIFIED (8) Knee pain Code(s): M25.569 - PAIN IN UNSPECIFIED KNEE Qualifiers: Chronicity: acute Laterality: left Qualified Code(s): M25.562 - Pain in left knee (9) Pain of left calf Code(s): M79.662 - PAIN IN LEFT LOWER LEG (10) Vomiting Code(s): R11.10 - VOMITING, UNSPECIFIED Qualifiers: Vomiting type: unspecified Vomiting Intractability: non-intractable Nausea presence: with nausea Qualified Code(s): R11.2 - Nausea with vomiting, unspecified Assessment/Plan cp h/o dvt on coumadin hld htn plan; echo r/o mi may need mibi stress test for risks stratification.
[2016-11-17 12:29] LABS: MAGNESIUM 1.7 mg/dL (1.8-2.4); SGOT/AST 23 U/L (15-37)
--- NOTE | 2016-11-17 13:40 | EKG ---
Test Reason : Blood Pressure : / mmHG Vent. Rate : 063 BPM Atrial Rate : 063 BPM P-R Int : 146 ms QRS Dur : 078 ms QT Int : 440 ms P-R-T Axes : 037 041 044 degrees QTc Int : 450 ms NORMAL SINUS RHYTHM NORMAL ECG WHEN COMPARED WITH ECG OF 09-NOV-2016 10:43, NO SIGNIFICANT CHANGE WAS FOUND Confirmed by JULISA CAPPS MD ([id number]) on 11/17/2016 1:39:38 PM Referred By: Confirmed By:JULISA CAPPS MD
[2016-11-17] MEDS ORDERED: SODIUM PHOSPHATE/NA BIPHOS 133 ML ENEMA PR ONE (15:17)
[2016-11-17 16:55] VITALS: BMI 18.4
[2016-11-17] MEDS ORDERED: WARFARIN NA 2.5 MG TABLET (FP) PO SCH (18:00)
--- NOTE | 2016-11-17 21:56 | HP ---
Admitting History and Physical - Primary Care Physician PCP: Barron Gallegos - Admission Chief Complaint: chest pain History of Present Illness: 76 y/o who this morning after watering some plants in the garden came inside the house and then stared sweating profusely with severe pressure in precordil area with SOB , called her who was outside and then stayed on the couch and was brought to ED via ambulance. ,She continued to have chest pain for about 45 minutes. There was no radiation of pain. Her BP during this episode was 94/70 and she measured it herself. She is a known hypertensive, GERD, hyperlipidemia with osteoarthritis of spine History Source: Patient Limitations to Obtaining History: No Limitations - Past Medical History Cardiovascular: Yes: Deep Vein Thrombosis, HTN, Hyperlipdemia. No: AFIB, Aneurysm, Aortic Insufficiency, Aortic Stenosis, CAD, CHF, [place], Mitral Insufficiency, Mitral Stenosis, Murmur, Pulmonary Hypertension, Other Gastrointestinal: Yes: Constipation, GERD, Hiatal Hernia ...: No Musculoskeletal: Yes: Chronic low back pain, Osteoarthritis ENT: Yes: Other (tinnitus) Endocrine: Yes: Hyperparathyroidism, Other (Developed hypotension and electolyte changes while being tapered off from prednisone) - Past Surgical History Past Surgical History: Yes: Appendectomy, Colonoscopy Additional Past Surgical History: Rotator cuff repair of right shoulder Parathyroid adenoma resected - Smoking History Smoking history: Never smoked Have you smoked in the past 12 months: No Aproximately how many cigarettes per day: 0 - Alcohol/Substance Use Hx Alcohol Use: No - Social History Usual Living Arrangement: Yes: With Spouse ADL: Independent History of Recent Travel: No Home Medications - Allergies Allergies/Adverse Reactions: Allergies Allergy/AdvReac Type Severity Reaction Status Date / Time omeprazole Allergy Verified 11/09/16 10:51 Sulfa (Sulfonamide Allergy Verified 11/09/16 10:51 Antibiotics) [Sulfa(Sulfonamide Antibiotics)] - Home Medications Home Medications: Ambulatory Orders Losartan Potassium 100 mg PO HS 02/11/16 Losartan Potassium [Cozaar -] 50 mg PO AM 02/11/16 Lubiprostone [Amitiza] 24 mcg PO BID 02/11/16 Simvastatin [Zocor -] 20 mg PO HS 02/11/16 Warfarin Sodium [Coumadin] 2.5 mg PO DAILY 02/11/16 Metoprolol Succinate [Toprol Xl -] 25 mg PO DAILY 06/25/16 Ranitidine [Zantac -] 150 mg PO BID 06/25/16 Ondansetron [Zofran -] 4 mg PO TID PRN #21 tablet 11/09/16 Family Disease History - Family Disease History Family Disease History: Heart Disease: Brother (brother had quadruple bypass), Other: Father ( 74 [place]) Review of Systems - Review of Systems Constitutional: reports: Unintentional Wgt. Loss Eyes: reports: No Symptoms HENT: reports: No Symptoms Neck: reports: No Symptoms Cardiovascular: reports: No Symptoms Respiratory: reports: No Symptoms Gastrointestinal: reports: Constipation Genitourinary: reports: No Symptoms Breasts: reports: No Symptoms Reported Musculoskeletal: reports: Back Pain, Joint Pain Integumentary: reports: No Symptoms Neurological: reports: No Symptoms Endocrine: reports: No Symptoms Hematology/Lymphatic: reports: No Symptoms Psychiatric: reports: No Symptoms, Suicidal Physical Examination Vital Signs: Vital Signs Temperature 97.3 F L 11/17/16 16:42 Pulse Rate 59 L 11/17/16 16:42 Respiratory Rate 20 11/17/16 16:42 Blood Pressure 154/66 11/17/16 16:42 O2 Sat by Pulse Oximetry (%) 96 11/17/16 17:34 Constitutional: Yes: No Distress, Calm Eyes: Yes: Conjunctiva Clear, EOM Intact HENT: Yes: Atraumatic, Normocephalic Neck: Yes: Supple Cardiovascular: Yes: Regular Rate and Rhythm, S1, S2 Respiratory: Yes: Regular, CTA Bilaterally Gastrointestinal: Yes: Normal Bowel Sounds, Soft Renal/: Yes: WNL Breast(s): Yes: WNL Musculoskeletal: Yes: Back Pain Extremities: Yes: WNL Edema: No Peripheral Pulses WNL: Yes Integumentary: Yes: WNL Neurological: Yes: Alert, Oriented, Cran Nerves II-XII Intact Imaging - Results Chest X-ray: Report Reviewed Ultrasound: Report Reviewed EKG: Image Reviewed Problem List - Problems (1) Chest pain Assessment/Plan: No further chest pain after admission Code(s): R07.9 - CHEST PAIN, UNSPECIFIED Qualifiers: Chest pain type: unspecified Qualified Code(s): R07.9 - Chest pain, unspecified (2) HTN (hypertension) Assessment/Plan: Hypertension being controlled with ARB and beta bernard Code(s): I10 - ESSENTIAL (PRIMARY) HYPERTENSION (3) Hyperlipidemia Code(s): E78.5 - HYPERLIPIDEMIA, UNSPECIFIED Assessment/Plan IMP: Chest pain, Plan : If cardiac enzymes remain normal will have to undergo a stress sestamibi to r/o possibility of CAD. Has strong family history of CAD brother and father.
[2016-11-17] MEDS ORDERED: ATORVASTATIN CA 10 MG TABLET (FP) PO SCH (22:00)
[2016-11-17] MEDS ORDERED: LOSARTAN POTASSIUM 50 MG TABLET (FP) PO SCH (22:00)
[2016-11-17] MEDS: RANITIDINE HCL 150 MG TABLET (FP) PO SCH (22:12)
[2016-11-17] MEDS: ASPIRIN COATED 81 MG TABLET.EC PO SCH (22:12)
[2016-11-17] MEDS: LOSARTAN POTASSIUM 50 MG TABLET (FP) PO SCH (22:13)
[2016-11-18 00:17] LABS: TROPONIN I < 0.02 ng/ml (0.00-0.05)
--- NOTE | 2016-11-18 10:58 | PN ---
Progress Note, Physician Chief Complaint: Pt awaits nuclear stress test; anxious, saying several family members had or have heart disease, including her younger brother, who recently had CABG. No chest pain or dyspnea. She worries her cholesterol is high despite losing 20 lbs and being on simvastatin. 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 The patient reports walking around in the yard with her , and upon entering her house she reports having being weakness, chest pressure and profuse sweating. She reports this episode lasted about 45 mins, throughout her ambulance transport into the ER, and notes still some chest pressure upon ED arrival. She reports during this episode taking her BP noting it to be 90/72. She denies any previous strenuous activity today. She reports having a similar episode last year in December and had a nuclear stress test (negative for ischemia). Pt denies any current complaints states she feels almost back to normal currently . She also notes weight loss of 20 pounds over the past month and is being evaluated by her PMD for this. She denies any dietary changes or increase in exercise. She denies recent fevers, chills, headache or dizziness. She denies recent nausea, vomit, diarrhea or constipation. She denies recent dysuria, frequency, urgency or hematuria. Allergies: NKA Past surgical history: None reported. Social history: Nonsmoker. Denies EtOH use and recreational drug use. Primary Care Physician: Dr Bonilla Family History: Father of [place] Patient Assistant: - Current Medication List Current Medications: Active Medications Aspirin (Ecotrin -) 81 mg PO DAILY [facility] Last Admin: 11/17/16 22:12 Dose: 81 mg Atorvastatin Calcium (Lipitor -) 10 mg PO HS [facility] Last Admin: 11/17/16 22:12 Dose: 10 mg Losartan Potassium (Cozaar -) 50 mg PO BID [facility] Last Admin: 11/17/16 22:13 Dose: 50 mg Ranitidine HCl (Zantac -) 150 mg PO BID [facility] Last Admin: 11/17/16 22:12 Dose: 150 mg Warfarin Sodium (Coumadin -) 2.5 mg PO DAILY@1800 [facility] Last Admin: 11/17/16 20:28 Dose: 2.5 mg - Objective Vital Signs: Vital Signs Temperature 98 F 11/18/16 09:00 Pulse Rate 62 11/18/16 09:00 Respiratory Rate 18 11/18/16 09:00 Blood Pressure 150/80 11/18/16 09:00 O2 Sat by Pulse Oximetry (%) 97 11/17/16 23:43 Constitutional: Yes: Anxious Eyes: Yes: WNL HENT: Yes: WNL Neck: Yes: WNL Cardiovascular: Yes: Bradycardia Respiratory: Yes: Regular Gastrointestinal: Yes: Soft ...Rectal Exam: Yes: Deferred Genitourinary: No: Anuria Breast(s): Yes: WNL Musculoskeletal: Yes: WNL Extremities: Yes: WNL Edema: No Peripheral Pulses WNL: Yes Integumentary: Yes: WNL Neurological: Yes: Alert, Oriented Psychiatric: Yes: Other (anxiety) Labs: INR, PTT INR 2.87 (0.82-1.09) H D 11/17/16 11:20 - ....Imaging EKG: Image Reviewed (sinus bradycardia) Problem List - Problems (1) Chest pain Assessment/Plan: TNI< 0.02 x 2 EKG: no acute ST-T changes. Await stress MIBI: if no significant ischemia, pt may be followed as an outpatient, and will encourage increase in daily exercise. Agree with change to the more potent atorvastatin; keep LDL cholesterol < 70 mg/ dL. Code(s): R07.9 - CHEST PAIN, UNSPECIFIED Qualifiers: Chest pain type: unspecified Qualified Code(s): R07.9 - Chest pain, unspecified (2) CHAPMAN (dyspnea on exertion) Code(s): R06.09 - OTHER FORMS OF DYSPNEA (3) Anxiety Code(s): F41.9 - ANXIETY DISORDER, UNSPECIFIED (4) DVT (deep venous thrombosis) Assessment/Plan: on warfarin; keep INR 2-3 (presently 2.87). Code(s): I82.409 - ACUTE EMBOLISM AND THOMBOS UNSP DEEP VN UNSP LOWER EXTREMITY (5) Hyperlipidemia Assessment/Plan: on statin. Code(s): E78.5 - HYPERLIPIDEMIA, UNSPECIFIED
--- NOTE | 2016-11-18 12:28 | EKG ---
Test Reason : Blood Pressure : / mmHG Vent. Rate : 056 BPM Atrial Rate : 056 BPM P-R Int : 160 ms QRS Dur : 076 ms QT Int : 460 ms P-R-T Axes : 029 055 052 degrees QTc Int : 443 ms SINUS BRADYCARDIA OTHERWISE NORMAL ECG WHEN COMPARED WITH ECG OF 17-NOV-2016 09:56, NO SIGNIFICANT CHANGE WAS FOUND Confirmed by VIJAY OROZCO MD ([id number]) on 11/18/2016 12:27:46 PM Referred By: ALDO ZAVALA Confirmed By:VIJAY OROZCO MD
[2016-11-18] MEDS: RANITIDINE HCL 150 MG TABLET (FP) PO SCH (12:37)
[2016-11-18] MEDS: LOSARTAN POTASSIUM 50 MG TABLET (FP) PO SCH (12:38)
[2016-11-18] MEDS: ASPIRIN COATED 81 MG TABLET.EC PO SCH (12:38)
[2016-11-18 14:55] VITALS: BP 134/59; PULSE 66; TEMP 98.5
[2016-11-18] MEDS ORDERED: ATORVASTATIN CA 20 MG TABLET (FP) PO SCH (22:00)
== END 2016-11-18 17:19 | disposition home or self-care (01) ==
LOC: JER 09:41 → JERBED 13:36 → J4W 16:32
PROVIDERS: ADMIT Internal Medicine Hematology & Oncology; ATTEND Internal Medicine Hematology & Oncology
DX: R07.89 Other chest pain (principal); E27.49 Other adrenocortical insufficiency; R06.09 Other forms of dyspnea; I82.409 Acute embolism and thrombosis of unspecified deep veins of unspecified lower extremity; R53.1 Weakness; I10 Essential (primary) hypertension; E78.5 Hyperlipidemia, unspecified; M25.562 Pain in left knee; M79.662 Pain in left lower leg; R11.2 Nausea with vomiting, unspecified; Z79.01 Long term (current) use of anticoagulants; Z88.2 Allergy status to sulfonamides; K21.9 Gastro-esophageal reflux disease without esophagitis
CPT/HCPCS: 36415; 71010-TC; 78452-TC; 80053; 82550; 83735; 84484; 85025; 85610; 93005; 93010; 93017; 93306-TC; 99285-25; A9502; G0378

== ENCOUNTER 2017-07-15 12:35 | Emergency (ER) | payer OTHER, MEDICARE ==
[2017-07-15 12:42] VITALS: TEMP 98; BMI 19.4
--- NOTE | 2017-07-15 12:47 | PDOC ---
History of Present Illness - General Stated Complaint: ELEVATED BP Time Seen by Provider: 07/15/17 12:46 - History of Present Illness Initial Comments: 07/15/17 12:58 Ms. Nieves is a 77 yo female w/ pmh of 2 DVT's ('06, '10, currently on warfarin), GERD, HTN, HLD, and constipation who presents for evaluation after she experienced increased blood pressure at home (peak 170/87 last night). She reports she took some extra BP meds and went to sleep and that this morning she has been experiencing centralized chest pain when she leans forward as of this morning. She reports she currently feels anxious about her BP but otherwise feels her normal self. The patient denies shortness of breath, headache and dizziness. Denies fever, chills, nausea, vomit, diarrhea and constipation. Denies dysuria, frequency, urgency and hematuria. Allergies: Omeprazole, Sulfa drugs Past History - Past Medical History Allergies/Adverse Reactions: Allergies Allergy/AdvReac Type Severity Reaction Status Date / Time omeprazole Allergy Verified 07/15/17 13:52 Sulfa (Sulfonamide Allergy Verified 07/15/17 13:52 Antibiotics) [Sulfa(Sulfonamide Antibiotics)] Home Medications: Ambulatory Orders Lubiprostone [Amitiza] 24 mcg PO BID 02/11/16 Amlodipine Besylate [Norvasc -] 2.5 mg PO DAILY 07/15/17 Lubiprostone [Amitiza] 24 mg PO BID 07/15/17 Ranitidine HCl [Zantac] 150 mg PO BID 07/15/17 Simvastatin [Zocor -] 10 mg PO DAILY 07/15/17 Warfarin Sodium [Coumadin] 2.5 mg PO DAILY 07/15/17 Anemia: No Asthma: No Cancer: No Cardiac Disorders: No CVA: No COPD: No CHF: No DVT: Yes Dementia: No Diabetes: No GI Disorders: Yes (gerd diverticulitis) Disorders: No HTN: Yes Hypercholesterolemia: Yes Liver Disease: No Seizures: No Thyroid Disease: No - Surgical History Abdominal Surgery: No Appendectomy: Yes Cardiac Surgery: No Cholecystectomy: No Lung Surgery: No Neurologic Surgery: No Orthopedic Surgery: Yes (SHOULDER, KNEE deformity repairedn shpilder right rotator cuff tear) - Suicide/Smoking/Psychosocial Hx Smoking Status: No Smoking History: Never smoked Have you smoked in the past 12 months: No Number of Cigarettes Smoked Daily: 0 Information on smoking cessation initiated: No Hx Alcohol Use: No Drug/Substance Use Hx: No Substance Use Type: None Hx Substance Use Treatment: No Review of Systems - Review of Systems Comments:: 07/15/17 13:01 GENERAL/CONSTITUTIONAL: No fever or chills. No weakness. HEAD, EYES, EARS, NOSE AND THROAT: No change in vision. No ear pain or discharge. No sore throat. CARDIOVASCULAR: +Chest pressure as described RESPIRATORY: No cough, wheezing, or hemoptysis. GASTROINTESTINAL: No nausea, vomiting, diarrhea or constipation. GENITOURINARY: No dysuria, frequency, or change in urination. MUSCULOSKELETAL: No joint or muscle swelling or pain. No neck or back pain. SKIN: No rash NEUROLOGIC: No headache, vertigo, loss of consciousness, or change in strength/ sensation. ENDOCRINE: No increased thirst. No abnormal weight change HEMATOLOGIC/LYMPHATIC: No anemia, easy bleeding, or history of blood clots. ALLERGIC/IMMUNOLOGIC: No hives or skin allergy. *Physical Exam - Vital Signs Last Vital Signs Temp Pulse Resp BP Pulse Ox 98 F 72 19 182/107 98 07/15/17 12:40 07/15/17 12:40 07/15/17 12:40 07/15/17 12:40 07/15/17 12:40 - Physical Exam Comments: 07/15/17 13:01 GENERAL: Awake, alert, and fully oriented, in no acute distress HEAD: No signs of trauma, normocephalic, atraumatic EYES: PERRLA, EOMI, sclera anicteric, conjunctiva clear ENT: Auricles normal inspection, hearing grossly normal, nares patent, oropharynx clear without exudates. Moist mucosa NECK: Normal ROM, supple, no lymphadenopathy, JVD, or masses LUNGS: No distress, speaks full sentences, clear to auscultation bilaterally HEART: Regular rate and rhythm, normal S1 and S2, no murmurs, rubs or gallops, peripheral pulses normal and equal bilaterally. ABDOMEN: Soft, nontender, normoactive bowel sounds. No guarding, no rebound. No masses EXTREMITIES: Normal inspection, Normal range of motion, no edema. No clubbing or cyanosis. NEUROLOGICAL: Cranial nerves II through XII grossly intact. Normal speech, normal gait, no focal sensorimotor deficits SKIN: Warm, Dry, normal turgor, no rashes or lesions noted. ED Treatment Course - LABORATORY CBC & Chemistry Diagram: 07/15/17 13:10 07/15/17 13:10 Medical Decision Making - Medical Decision Making 07/15/17 17:54 Ms. Nieves is a 77 yo female w/ pmh as described who presents w/ elevated BP at home. Per PCP over the phone she had EKG with flipped T waves in leads V1 and V2. Per EKG at hospital no evidence of this on first EKG. Cardiac workup started and all labs wnl as below. No UTI, no acute process on CXR, troponins less than 0.02. Repeat EKG and troponin performed. Repeat EKG showed flipped T waves on V2 however troponin was similarly <0.02. Patient examined by cardiology in hospital who is comfortable following up outpatient for further evaluation. Patient will follow-up in office. Laboratory Results - last 24 hr 07/15/17 07/15/17 07/15/17 13:10 13:10 13:10 WBC 8.0 RBC 5.53 H Hgb 16.1 H Hct 49.0 H MCV 88.6 MCH 29.0 MCHC 32.8 RDW 13.5 Plt Count 298 MPV 7.4 L Neutrophils % 57.1 Lymphocytes % 33.8 Monocytes % 7.4 Eosinophils % 0.7 Basophils % 1.0 PT with INR 18.00 H INR 1.59 H PTT (Actin FS) 36.6 H Sodium 141 Potassium 4.1 Chloride 103 Carbon Dioxide 32 Anion Gap 6 L BUN 12 Creatinine 0.6 Creat Clearance w eGFR > 60 Random Glucose 98 Calcium 10.1 Total Bilirubin 0.4 D AST 21 ALT 18 Alkaline Phosphatase 71 Creatine Kinase 63 Troponin I < 0.02 Total Protein 7.5 Albumin 3.7 Urine Color Urine Appearance Urine pH Ur Specific [place] Urine Protein Urine Glucose (UA) Urine Ketones Urine Blood Urine Nitrite Urine Bilirubin Urine Urobilinogen Ur Leukocyte Esterase Urine WBC (Auto) Urine RBC (Auto) Blood Type Antibody Screen 07/15/17 07/15/17 07/15/17 13:10 14:11 16:28 WBC RBC Hgb Hct MCV MCH MCHC RDW Plt Count MPV Neutrophils % Lymphocytes % Monocytes % Eosinophils % Basophils % PT with INR INR PTT (Actin FS) Sodium Potassium Chloride Carbon Dioxide Anion Gap BUN Creatinine Creat Clearance w eGFR Random Glucose Calcium Total Bilirubin AST ALT Alkaline Phosphatase Creatine Kinase Troponin I Cancelled Total Protein Albumin Urine Color Colorless Urine Appearance Clear Urine pH 7.0 Ur Specific [place] 1.005 Urine Protein Negative Urine Glucose (UA) Negative Urine Ketones Negative Urine Blood Negative Urine Nitrite Negative Urine Bilirubin Negative Urine Urobilinogen Negative Ur Leukocyte Esterase Trace Urine WBC (Auto) 1 Urine RBC (Auto) 1 Blood Type A POSITIVE Antibody Screen Negative 07/15/17 17:30 WBC RBC Hgb Hct MCV MCH MCHC RDW Plt Count MPV Neutrophils % Lymphocytes % Monocytes % Eosinophils % Basophils % PT with INR INR PTT (Actin FS) Sodium Potassium Chloride Carbon Dioxide Anion Gap BUN Creatinine Creat Clearance w eGFR Random Glucose Calcium Total Bilirubin AST ALT Alkaline Phosphatase Creatine Kinase Troponin I < 0.02 Total Protein Albumin Urine Color Urine Appearance Urine pH Ur Specific [place] Urine Protein Urine Glucose (UA) Urine Ketones Urine Blood Urine Nitrite Urine Bilirubin Urine Urobilinogen Ur Leukocyte Esterase Urine WBC (Auto) Urine RBC (Auto) Blood Type Antibody Screen *DC/Admit/Observation/Transfer Diagnosis at time of Disposition: HTN (hypertension) Qualifiers: Hypertension type: unspecified Qualified Code(s): I10 - Essential (primary) hypertension - Discharge Dispostion Disposition: HOME - Referrals Referrals: Barron Gallegos MD [Primary Care Provider] - - Patient Instructions Printed Discharge Instructions: High Blood Pressure Additional Instructions: Please return if any altered mental status, fever, chills, headache, or other concerning symptoms. Follow-up with primary care physician and size painter outpatient as discussed for further evaluation. - Post Discharge Activity
--- NOTE | 2017-07-15 13:18 | PDOC ---
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 Patient notes that she was sitting watching TV crocheting when she felt a sudden palpitation that lasted a split second, then resolved without offical pain, sob, n/v diaphoresis. She checked her bp and it was alittle elevated so she took an extra dose of bp meds. This morning she was bending over putting onher shoe when she noticed mild discomfort in her chest only when she is leaning forward. She loretta any current chest pain/discomforrt, n/v diaphoresis, fever/chills, cough, hemoptysis, leg swlling, Pts BP was again high. No exertional worsening of her symptoms. Pt denies any recent URI like symtoms including cough, congestion, fever/chills. xam unremarkable cardiac exam: rrr, no m/r/g pulm: cta bl abd soft nontender general: well appearing in no distress ddx, unlikely pericarditis (ekg inconsistent with that), consider acs will dw cardiology - Physicial Exam PE: 07/15/17 17:03 se eabove - Medical Decision Making 07/15/17 15:48 pts alabs unremarkable trop neg x [address] monroy requests cardiology consultation 07/15/17 17:[address] altamirano, who assessed the pat and also discussed with dr. Monroy recommendations 2 troponins and repeat ekg if they are asypmtomatic and feelin gimproved can dc the pt with PMD fu 07/15/17 18:45 tro pneg x 2 ekg unchanged x 2 will dc with pmd and card fu return precuations were discussed I discussed the physical exam findings, ancillary test results and final diagnoses with the patient. I answered all of the patient's questions. The patient was satisfied with the care received and felt comfortable with the discharge plan and treatment plan. The patient will call their primary care physician within 24 hours to arrange follow-up and will return to the Emergency Department with any new, persistent or worsening symptoms. Heart Score/ECG Review - ECG Impressions Comment:: 07/15/17 15:47 Twelve-lead EKG was performed and reviewed by me. There is normal sinus rhythm with a rate of 57 The axis is normal. The intervals are normal. There is normal R wave progression There are no ST or T wave abnormalities. Impression: sinus bradycardia 07/15/17 18:45 Twelve-lead EKG was performed and reviewed by me. There is normal sinus rhythm with a normal rate. Rate of 61 The axis is normal. The intervals are normal. There is normal R wave progression
[2017-07-15 13:25] LABS: EOS % 0.7 % (0-4.5); HEMOGLOBIN 16.1 GM/dL (10.7-15.3); LYMPH % 33.8 % (8-40); MCHC 32.8 g/dl (32.0-36.0); MEAN CELL VOLUME 88.6 fl (80-96); MEAN PLT VOLUME 7.4 fl (7.5-11.1); MONO % 7.4 % (3.8-10.2); NEUT % 57.1 % (42.8-82.8); PLATELET COUNT 298 K/MM3 (134-434); RBC 5.53 M/mm3 (3.60-5.2); RDW 13.5 % (11.6-15.6)
[2017-07-15 13:38] LABS: INR 1.59 (0.82-1.09)
[2017-07-15 13:41] LABS: ACTIVATED PTT 36.6 SECONDS (26.9-34.4)
[2017-07-15 13:55] LABS: ALK PHOS 71 U/L (45-117); BILIRUBIN,TOTAL 0.4 mg/dL (0.2-1.0); TOT PROT 7.5 g/dl (6.4-8.2)
[2017-07-15 13:56] LABS: ALBUMIN 3.7 g/dl (3.4-5.0); ANION GAP 6 (8-16); BLOOD UREA NITROGEN 12 mg/dL (7-18); CALCIUM 10.1 mg/dL (8.5-10.1); CHLORIDE 103 mmol/L (98-107); CO2 32 mmol/L (21-32); CREATININE 0.6 mg/dL (0.55-1.02); GLUCOSE,RANDOM 98 mg/dL (74-106); POTASSIUM 4.1 mmol/L (3.5-5.1); SGOT/AST 21 U/L (15-37); SGPT/ALT 18 U/L (12-78); SODIUM 141 mmol/L (136-145)
[2017-07-15 14:35] LABS: URINE APPEARANCE CLEAR; URINE BILIRUBIN NEGATIVE (NEGATIVE); URINE BLOOD NEGATIVE (NEGATIVE); URINE COLOR COLORLESS; URINE GLUCOSE (UA) NEGATIVE (NEGATIVE); URINE KETONE NEGATIVE (NEGATIVE); URINE LEUK ESTERASE TRACE (NEGATIVE); URINE NITRITE NEGATIVE (NEGATIVE); URINE PROTEIN NEGATIVE (NEGATIVE); URINE UROBILINOGEN NEGATIVE mg/dL (0.2-1.0)
[2017-07-15] MEDS ORDERED: FUROSEMIDE 40 MG/4 ML INJECTABLE VIAL IVPUSH ONE (15:33)
[2017-07-15] MEDS ORDERED: FUROSEMIDE 40 MG/4 ML INJECTABLE VIAL ONE (15:54)
[2017-07-15 18:07] VITALS: PULSE 66
[2017-07-15 19:16] VITALS: BP 156/76
--- NOTE | 2017-07-16 06:16 | CON.CARD ---
Consult Consult Specialty:: cardiology Reason for Consultation:: HTN; atypical chest pain; EKG changes - History of Present Illness Chief Complaint: Pt , with at side, is nervous; A&Ox3; no chest pain or palpitations presently History of Present Illness: 77y F(patrizia. 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 Patient notes that she was sitting watching TV crocheting when she felt a sudden palpitation that lasted a split second, then resolved without offical pain, sob, n/v diaphoresis. She checked her bp and it was a little elevated so she took an extra dose of bp meds. This morning she was bending over putting onher shoe when she noticed mild discomfort in her chest only when she is leaning forward. She denies any current chest pain/ discomforrt, n/v diaphoresis, fever/chills, cough, hemoptysis, leg swelling, Pts BP was again high. No exertional worsening of her symptoms. Pt denies any recent URI like symtoms including cough, congestion, fever/chills. xam unremarkable - History Source History Provided By: Patient, Family Member, Medical Record Limitations to Obtaining History: No Limitations - Past Medical History Cardio/Vascular: Yes: Deep Vein Thrombosis, HTN, Hyperlipdemia. No: AFIB, Aneurysm, Aortic Insufficiency, Aortic Stenosis, CAD, CHF, IA, Mitral Insufficiency, Mitral Stenosis, Murmur, Pulmonary Hypertension, Other Gastrointestinal: Yes: Constipation, GERD, Hiatal Hernia Reproductive: Yes: Postmenopausal ...: No Musculoskeletal: Yes: Chronic low back pain, Osteoarthritis ENT: Yes: Other (tinnitus) Endocrine: Yes: Hyperparathyroidism, Other (Developed hypotension and electolyte changes while being tapered off from prednisone) - Past Surgical History Past Surgical History: Yes: Appendectomy, Colonoscopy - Alcohol/Substance Use Hx Alcohol Use: No - Smoking History Smoking history: Never smoked Have you smoked in the past 12 months: No Aproximately how many cigarettes per day: 0 - Social History ADL: Independent History of Recent Travel: No Home Medications - Allergies Allergies/Adverse Reactions: Allergies Allergy/AdvReac Type Severity Reaction Status Date / Time omeprazole Allergy Verified 07/15/17 13:52 Sulfa (Sulfonamide Allergy Verified 07/15/17 13:52 Antibiotics) [Sulfa(Sulfonamide Antibiotics)] - Home Medications Home Medications: Ambulatory Orders Lubiprostone [Amitiza] 24 mcg PO BID 02/11/16 Amlodipine Besylate [Norvasc -] 2.5 mg PO DAILY 07/15/17 Lubiprostone [Amitiza] 24 mg PO BID 07/15/17 Ranitidine HCl [Zantac] 150 mg PO BID 07/15/17 Simvastatin [Zocor -] 10 mg PO DAILY 07/15/17 Warfarin Sodium [Coumadin] 2.5 mg PO DAILY 07/15/17 Family Disease History - Family Disease History Family Disease History: Heart Disease: Brother (brother had quadruple bypass), Other: Father ( 74 [place]) Review of Systems - Review of Systems Constitutional: reports: No Symptoms Eyes: reports: No Symptoms HENT: reports: No Symptoms Neck: reports: No Symptoms Cardiovascular: reports: Chest Pain, Palpitations Respiratory: reports: No Symptoms Gastrointestinal: reports: No Symptoms Genitourinary: reports: No Symptoms Breasts: reports: No Symptoms Reported Musculoskeletal: reports: No Symptoms Integumentary: reports: No Symptoms Neurological: reports: No Symptoms Endocrine: reports: No Symptoms Hematology/Lymphatic: reports: No Symptoms Psychiatric: reports: Anxiety - Risk Factors Known Risk Factors: Yes: Age, Hypertension Vital Signs: Vital Signs Temperature 98 F 07/15/17 12:40 Pulse Rate 66 07/15/17 19:15 Respiratory Rate 18 07/15/17 19:15 Blood Pressure 156/76 07/15/17 19:15 O2 Sat by Pulse Oximetry (%) 100 07/15/17 19:15 Constitutional: Yes: Well Nourished, Anxious Eyes: Yes: WNL HENT: Yes: WNL Neck: Yes: WNL Respiratory: Yes: WNL Gastrointestinal: Yes: WNL Renal/: Yes: WNL Cardiovascular: Yes: WNL JVD: No Carotid Bruit: No PMI: Non-Displaced Heart Sounds: Yes: S1, S2, S4 Murmur: Yes: Systolic Murmur, Grade 2 Musculoskeletal: Yes: WNL Extremities: Yes: WNL Edema: No Peripheral Pulses WNL: Yes Integumentary: Yes: WNL Neurological: Yes: WNL Psychiatric: Yes: Other - Other Data Labs, Other Data: CBC, BMP 07/15/17 13:10 07/15/17 13:10 INR, PTT INR 1.59 (0.82-1.09) H 07/15/17 13:10 Troponin, BNP 07/15/17 07/15/17 07/15/17 13:10 16:28 17:30 Troponin I < 0.02 Cancelled < 0.02 Troponin, BNP 07/15/17 07/15/17 07/15/17 13:10 16:28 17:30 Troponin I < 0.02 Cancelled < 0.02 Abnormal Lab Results 07/15/17 07/15/17 07/15/17 13:10 13:10 13:10 RBC 5.53 H Hgb 16.1 H Hct 49.0 H MPV 7.4 L PT with INR 18.00 H INR 1.59 H PTT (Actin FS) 36.6 H Anion Gap 6 L Ejection Fraction %: LVEF > or = 40 % Imaging - Results EKG: Image Reviewed (NSR; no STT abnormalities) Problem List - Problems (1) Atypical chest pain Assessment/Plan: pain only occurs when pt bends over; lasts a second. 1st TNI < 0.02; if 2nd TNI, taken several hours later, is negative, and no EKG changes, recommend following as outpt from cardiology standpoint Code(s): R07.89 - OTHER CHEST PAIN (2) Anxiety Code(s): F41.9 - ANXIETY DISORDER, UNSPECIFIED (3) HTN (hypertension) Assessment/Plan: F/u serially; on amlodipine 2.5 mg daily; would increase to 5 mg daily. She had been on HCTZ in the past. Code(s): I10 - ESSENTIAL (PRIMARY) HYPERTENSION Qualifiers: Hypertension type: unspecified Qualified Code(s): I10 - Essential (primary ) hypertension (4) Hyperlipidemia Code(s): E78.5 - HYPERLIPIDEMIA, UNSPECIFIED (5) EKG abnormalities Assessment/Plan: Pt reportedly had T wave inversion in V1-V3 on EKG at PMD's offices; not noted now. Pt had stress MIBI (in 2017?) negative for ischemia. Code(s): R94.31 - ABNORMAL ELECTROCARDIOGRAM [ECG] [EKG]
--- NOTE | 2017-07-16 12:15 | EKG ---
Test Reason : Blood Pressure : / mmHG Vent. Rate : 057 BPM Atrial Rate : 057 BPM P-R Int : 146 ms QRS Dur : 086 ms QT Int : 438 ms P-R-T Axes : 038 024 048 degrees QTc Int : 426 ms SINUS BRADYCARDIA OTHERWISE NORMAL ECG WHEN COMPARED WITH ECG OF 18-NOV-2016 08:56, NO SIGNIFICANT CHANGE WAS FOUND Confirmed by VIJAY OROZCO MD ([id number]) on 07/16/2017 12:15:16 PM Referred By: Confirmed By:VIJAY OROZCO MD
--- NOTE | 2017-07-20 17:12 | EKG ---
Test Reason : Blood Pressure : / mmHG Vent. Rate : 061 BPM Atrial Rate : 061 BPM P-R Int : 152 ms QRS Dur : 078 ms QT Int : 436 ms P-R-T Axes : 040 039 056 degrees QTc Int : 438 ms NORMAL SINUS RHYTHM NORMAL ECG WHEN COMPARED WITH ECG OF 15-JUL-2017 12:47, NO SIGNIFICANT CHANGE WAS FOUND Confirmed by ALDO LAUREN MD ([id number]) on 07/20/2017 5:11:39 PM Referred By: Confirmed By:ALDO LAUREN MD
== END 2017-07-15 19:17 | disposition home or self-care (01) ==
LOC: JER 12:35
PROC: 3E033GC Introduction of Other Therapeutic Substance into Peripheral Vein, Percutaneous Approach (ICD-10-PCS; principal; 2017-07-15)
DX: I10 Essential (primary) hypertension (principal); R94.31 Abnormal electrocardiogram [ECG] [EKG]; E78.00 Pure hypercholesterolemia, unspecified; E78.5 Hyperlipidemia, unspecified; F41.9 Anxiety disorder, unspecified; Z86.718 Personal history of other venous thrombosis and embolism; Z79.01 Long term (current) use of anticoagulants
CPT/HCPCS: 36415; 71046-TC-FY; 80053; 81003; 81015; 82550; 84484; 85025; 85610; 85730; 86850; 86900; 86901; 93005; 93010; 96374; 99284-25

== ENCOUNTER 2018-01-02 09:23 | Emergency (ER) | payer OTHER, MEDICARE ==
[2018-01-02 09:40] VITALS: BP 159/77; PULSE 74; TEMP 98.5; BMI 18.4
--- NOTE | 2018-01-02 09:56 | PDOC ---
History of Present Illness - General Chief Complaint: Redness To Affected Area Stated Complaint: BITE ON FOOT, SWELLING Time Seen by Provider: 01/02/18 09:45 History Source: Patient Exam Limitations: No Limitations - History of Present Illness Initial Comments: 01/02/18 09:55 77 yr female with Past History - Past Medical History Allergies/Adverse Reactions: Allergies Allergy/AdvReac Type Severity Reaction Status Date / Time omeprazole Allergy Verified 01/02/18 09:37 Sulfa (Sulfonamide Allergy Verified 01/02/18 09:37 Antibiotics) [Sulfa(Sulfonamide Antibiotics)] Home Medications: Ambulatory Orders Amlodipine Besylate [Norvasc -] 2.5 mg PO DAILY 07/15/17 Lubiprostone [Amitiza] 24 mg PO BID 07/15/17 Ranitidine HCl [Zantac] 150 mg PO BID 07/15/17 Simvastatin [Zocor -] 10 mg PO DAILY 07/15/17 Warfarin Sodium [Coumadin] 2.5 mg PO DAILY 07/15/17 Anemia: No Asthma: No Cancer: No Cardiac Disorders: No CVA: No COPD: No CHF: No DVT: Yes Dementia: No Diabetes: No GI Disorders: Yes (gerd diverticulitis) Disorders: No HTN: Yes Hypercholesterolemia: Yes Liver Disease: No Seizures: No Thyroid Disease: No Other medical history: DVT - Surgical History Abdominal Surgery: No Appendectomy: Yes Cardiac Surgery: No Cholecystectomy: No Lung Surgery: No Neurologic Surgery: No Orthopedic Surgery: Yes (SHOULDER, KNEE deformity repairedn shpilder right rotator cuff tear) - Suicide/Smoking/Psychosocial Hx Smoking Status: No Smoking History: Never smoked Have you smoked in the past 12 months: No Number of Cigarettes Smoked Daily: 0 Hx Alcohol Use: No Drug/Substance Use Hx: No Substance Use Type: None Hx Substance Use Treatment: No *Physical Exam - Vital Signs Last Vital Signs Temp Pulse Resp BP Pulse Ox 98.5 F 74 18 159/77 98 01/02/18 09:37 01/02/18 09:37 01/02/18 09:37 01/02/18 09:37 01/02/18 09:37 *DC/Admit/Observation/Transfer Diagnosis at time of Disposition: Insect bite or sting - Discharge Dispostion Disposition: HOME Condition at time of disposition: Good - Referrals - Patient Instructions Additional Instructions: elevate the leg and apply cool compresses apply topical anti itch cream and hydrocortisone cream three times a day to the affected area follow with your doctor tomorrow as planned take tylenol if needed for pain - Post Discharge Activity
== END 2018-01-02 10:17 | disposition home or self-care (01) ==
LOC: JERFT 09:23
DX: T63.461A Toxic effect of venom of wasps, accidental (unintentional), initial encounter (principal); M79.89 Other specified soft tissue disorders; Y92.9 Unspecified place or not applicable; I10 Essential (primary) hypertension; E78.5 Hyperlipidemia, unspecified; Z88.2 Allergy status to sulfonamides
CPT/HCPCS: 99281-25

== ENCOUNTER 2019-01-09 10:21 | Day surgery (SDC) | payer OTHER, MEDICARE | END 2019-01-09 12:15 | disposition home or self-care (01) | LOC: JCHEMO 10:21 ==

== ENCOUNTER 2020-03-17 05:21 | Day surgery (SDC) | payer OTHER, MEDICARE ==
--- OUTSIDE RECORDS SUMMARY | 2020-03-11 13:58 | XMS ---
:1940 Author Organization [facility] Support Name Relationship Address Phone RE, RETIRED Unavailable Unavailable Unavailable RE Unavailable Unavailable Unavailable VELIA DELUNA [address] [place] [address] JORY DELUNA SON [address] [facility] [place] [phone] Re-disclosure Warning The records that you are about to access may contain information from federally- assisted alcohol or drug abuse programs. If such information is present, then the following federally mandated warning applies: This information has been disclosed to you from records protected by federal confidentiality rules (42 CFR part 2). The federal rules prohibit you from making any further disclosure of this information unless further disclosure is expressly permitted by the written consent of the person to whom it pertains or as otherwise permitted by 42 CFR part 2. A general authorization for the release of medical or other information is NOT sufficient for this purpose. The Federal rules restrict any use of the information to criminally investigate or prosecute any alcohol or drug abuse patient.The records that you are about to access may contain highly sensitive health information, the redisclosure of which is protected by Article 27-F of the [facility] Public Health law. If you continue you may haveaccess to information: Regarding HIV / AIDS; Provided by facilities licensed or operated by the [facility] Office of Mental Health; or Provided by the [facility] Office for People With Developmental Disabilities. If such information is present, then the following [facility] mandated warning applies: This information has been disclosed to you from confidential records which are protected by state law. State law prohibits you from making any further disclosure of this information without the specific written consent of the person to whom it pertains, or as otherwise permitted by law. Any unauthorized further disclosure in violation of state law may result in a fine or mcc sentence or both. A general authorization for the release of medical or other information is NOT sufficient authorization for further disclosure. Insurance Providers Payer name Policy type Policy ID Covered Covered constitution party's Policy P barry / Coverage constitution party ID relationship to [place] [employer] or[employer] type [place] MEDICARE [id number] SP [id number] [facility] [id number] SP [id number] CARE [employer] MEDICARE [id number] SP [id number] [id number]
--- OUTSIDE RECORDS SUMMARY | 2020-03-17 05:24 | XMS ---
:1940 Author Organization [facility] Support Name Relationship Address Phone RE Unavailable Unavailable Unavailable RE Unavailable Unavailable Unavailable REGI [address] [place] [address] REGI SON [address] [facility] [place] [phone] Re-disclosure Warning The records that you are [...] is protected by Article 27-F of the [facility] Public Health law. If you continue you may haveaccess to information: Regarding HIV / AIDS; Provided by facilities licensed or operated by the [facility] Office of Mental Health; or Provided by the [facility] Office for People With Developmental Disabilities. If such information is present, then the following [facility] mandated warning applies: This information has been [...] law may result in a fine or custodial sentence or both. A general authorization for the release of medical or other information is NOT sufficient authorization for further disclosure. Insurance Providers Payer name Policy type Policy ID Covered Covered green party's Policy P barry / Coverage green party ID relationship to [place] [employer] orm[employer] type [place] MEDICARE [id number] [id number] [facility] [id number] CARE [employer] MEDICARE [id number] Results ID Date Data Source [id number] 03/12/2020 09:22:00 AM EDT [facility] Name Value Range Interpretation Description Data Sup porting Code Source(s) Document(s ) SARS [facility] coronavirus 2 RNA This lab was ordered by [facility] and reported by [facility]. Procedure
[2020-03-17] MEDS ORDERED: ACETAMINOPHEN 325 MG TABLET (FP) PO ONE (12:00)
[2020-03-17] MEDS ORDERED: ZOLEDRONIC ACID/MAN/WATER 5 MG/100 ML INFUS..BTL IVPB ONE (12:00)
[2020-03-17] MEDS ORDERED: ACETAMINOPHEN 325 MG TABLET (FP) ONE (12:06)
[2020-03-17 14:08] VITALS: BP 121/64; PULSE 67; TEMP 98.4
== END 2020-03-17 13:55 | disposition home or self-care (01) ==
LOC: JCHEMO 05:21
PROVIDERS: ATTEND Internal Medicine Endocrinology, Diabetes & Metabolism
PROC: 3E033GC Introduction of Other Therapeutic Substance into Peripheral Vein, Percutaneous Approach (ICD-10-PCS; principal; 2020-03-17)
DX: M81.0 Age-related osteoporosis without current pathological fracture (principal)
CPT/HCPCS: 96365; J3489

== ENCOUNTER 2020-09-24 04:37 | Day surgery (SDC) | payer OTHER, MEDICARE ==
[2020-09-24 08:29] LABS: INR 1.09 (0.83-1.09); PROTHROMBIN TIME (PATIENT) 13.4 SEC (9.7-13.0)
[2020-09-24] MEDS ORDERED: BUPIVACAINE LIPOSOME/PF (EXPAREL) 266 MG/20 ML VIAL ONE (10:09)
[2020-09-24] MEDS ORDERED: MIDAZOLAM HCL 2 MG/2 ML SINGLE DOSE VIAL ONE ×2 (10:11)
[2020-09-24] MEDS ORDERED: ROCURONIUM BROMIDE 50 MG/5 ML SYRINGE ONE (10:26)
[2020-09-24] MEDS ORDERED: PROPOFOL 20 ML ONE (10:26)
[2020-09-24] MEDS ORDERED: LIDOCAINE HCL/PF 2% SDV 5ML VIAL ONE (10:26)
[2020-09-24] MEDS ORDERED: ceFAZolin SODIUM 1 GM VIAL ONE (10:54)
[2020-09-24] MEDS ORDERED: ceFAZolin SODIUM 1 GM VIAL IVPB ONE (10:54)
[2020-09-24] MEDS ORDERED: EPHEDRINE SULFATE/0.9% NACL/PF 50 MG/10 ML SYRINGE NR ONE (10:56)
[2020-09-24] MEDS ORDERED: NEOSTIGMINE METHYLSULFATE 0.5 MG/ML - 10 ML MDV ONE (12:17)
[2020-09-24] MEDS ORDERED: GLYCOPYRROLATE 0.2 MG/1 ML VIAL ONE (12:17)
[2020-09-24] MEDS ORDERED: oxyCODONE HCL 5 MG TABLET PO PRN ×2 (12:49→15:51)
[2020-09-24] MEDS ORDERED: ACETAMINOPHEN 1000 MG/100 ML VIAL (NON FORMULARY) IVPB PRN (12:49)
[2020-09-24] MEDS ORDERED: LACTATED RINGERS SOLUTION 1,000 ML/1,000 ML INFUS.BAG IV SCH (13:30)
[2020-09-24] MEDS ORDERED: ACETAMINOPHEN 1000 MG/100 ML VIAL (NON FORMULARY) IVPB ONE (13:38)
[2020-09-24] MEDS ORDERED: oxyCODONE HCL 5 MG TABLET ONE (16:04)
[2020-09-24 18:24] VITALS: PULSE 71
[2020-09-24 18:33] VITALS: BP 106/78; TEMP 98
== END 2020-09-24 18:15 | disposition home or self-care (01) ==
LOC: JASU-SURG 04:37
PROVIDERS: ATTEND Surgery
PROC: 8E0W4CZ Robotic Assisted Procedure of Trunk Region, Percutaneous Endoscopic Approach (ICD-10-PCS; 2020-09-24)
PROC: 0YUA4JZ Supplement Bilateral Inguinal Region with Synthetic Substitute, Percutaneous Endoscopic Approach (ICD-10-PCS; principal; 2020-09-24 10:00)
DX: K40.20 Bilateral inguinal hernia, without obstruction or gangrene, not specified as recurrent (principal)
CPT/HCPCS: 49650; S2900; 36415; 85610; 94760; J0131

== ENCOUNTER 2021-06-08 09:32 | Observation (INO) | payer OTHER, MEDICARE ==
[2021-06-08 11:50] LABS: BASO % 1.1 % (0-2.0); HEMATOCRIT 45.5 % (32.4-45.2); HEMOGLOBIN 15.5 GM/dL (10.7-15.3); MCH 30.2 pg (25.7-33.7); MEAN CELL VOLUME 88.7 fl (80-96); MONO % 9.2 % (3.8-10.2); NEUT % 44.7 % (42.8-82.8); PLATELET COUNT 305 10^3/uL (134-434); RBC 5.13 M/mm3 (3.60-5.2); RDW 12.4 % (11.6-15.6); WHITE BLOOD COUNT 6.3 K/mm3 (4.0-10.0)
[2021-06-08 11:53] LABS: URINE APPEARANCE CLEAR; URINE BILIRUBIN NEGATIVE (NEGATIVE); URINE COLOR YELLOW; URINE GLUCOSE (UA) NEGATIVE (NEGATIVE); URINE KETONE NEGATIVE (NEGATIVE); URINE LEUK ESTERASE NEGATIVE (NEGATIVE); URINE NITRITE NEGATIVE (NEGATIVE); URINE PROTEIN NEGATIVE (NEGATIVE); URINE UROBILINOGEN 0.2 mg/dL (0.2-1.0)
[2021-06-08 12:04] LABS: INR 1.88 (0.83-1.09); PROTHROMBIN TIME (PATIENT) 21.8 SEC (9.7-13.0)
[2021-06-08 12:07] LABS: ACTIVATED PTT 40.8 SECONDS (25.2-36.5)
[2021-06-08 12:10] LABS: CHLORIDE 105 mmol/L (98-107); SODIUM 141 mmol/L (136-145)
[2021-06-08 12:12] LABS: ANION GAP 8 MMOL/L (8-16); CALCIUM 9.2 mg/dL (8.5-10.1); CO2 28 mmol/L (21-32)
[2021-06-08 12:13] LABS: ALBUMIN 3.5 g/dl (3.4-5.0); GLUCOSE,RANDOM 100 mg/dL (74-106)
[2021-06-08 12:15] LABS: SGPT/ALT 29 U/L (13-61)
[2021-06-08 12:16] LABS: CREATININE 0.6 mg/dL (0.55-1.3); SGOT/AST 26 U/L (15-37)
[2021-06-08 12:17] LABS: BILIRUBIN,TOTAL 0.3 mg/dL (0.2-1)
[2021-06-08 12:18] LABS: ALK PHOS 60 U/L (45-117)
[2021-06-08] MEDS ORDERED: ALPRAZolam 1 MG TABLET PO PRN (16:20)
[2021-06-08] MEDS ORDERED: WARFARIN NA 2.5 MG TABLET PO SCH (17:00)
[2021-06-08] MEDS ORDERED: ALPRAZolam 0.25 MG TABLET PO PRN (17:26)
[2021-06-08] MEDS ORDERED: WARFARIN NA 5 MG TABLET ONE (19:10)
[2021-06-08] MEDS ORDERED: ALPRAZolam 2 MG TABLET PO PRN (20:30)
[2021-06-08] MEDS ORDERED: ZOLPIDEM TARTRATE 5 MG TABLET PO PRN (20:30)
[2021-06-08] MEDS ORDERED: ATORVASTATIN CA 20 MG TABLET (FP) PO SCH (22:00)
[2021-06-08] MEDS ORDERED: SENNOSIDES 8.6MG TABLET (FP) PO SCH (22:00)
[2021-06-08] MEDS ORDERED: amLODIPine BESYLATE 5 MG TABLET (FP) ONE (22:04)
[2021-06-08] MEDS ORDERED: ATORVASTATIN CA 20 MG TABLET (FP) ONE (22:04)
[2021-06-08] MEDS ORDERED: hydrALAZINE HCL 25 MG TABLET (FP) ONE (22:04)
[2021-06-08] MEDS: hydrALAZINE HCL 25 MG TABLET (FP) PO SCH (22:27)
[2021-06-08] MEDS: amLODIPine BESYLATE 5 MG TABLET (FP) PO SCH (22:27)
[2021-06-08] MEDS ORDERED: ACETAMINOPHEN 325 MG TABLET (FP) ONE (22:35)
[2021-06-08] MEDS ORDERED: GABAPENTIN 100 MG CAPSULE ONE (22:36)
[2021-06-08] MEDS ORDERED: ALPRAZolam 0.25 MG TABLET ONE (22:36)
[2021-06-08] MEDS ORDERED: GABAPENTIN 300 MG CAPSULE PO ONE (22:57)
[2021-06-08] MEDS ORDERED: ACETAMINOPHEN 325 MG TABLET (FP) PO PRN (22:57)
[2021-06-09 01:47] VITALS: BMI 18.8
[2021-06-09] MEDS: hydrALAZINE HCL 25 MG TABLET (FP) PO SCH ×2 (06:08→16:14)
[2021-06-09] MEDS: GABAPENTIN 300 MG CAPSULE PO SCH ×2 (06:08→16:14)
[2021-06-09] MEDS: PANTOPRAZOLE 20 MG TABLET PO SCH ×2 (06:09→16:14)
[2021-06-09 08:12] LABS: INR 1.81 (0.83-1.09); PROTHROMBIN TIME (PATIENT) 20.9 SEC (9.7-13.0)
[2021-06-09 11:12] LABS: CHOLESTEROL 219 mg/dL (50-200); TRIGLYCERIDES 73 mg/dL (0-150)
[2021-06-09 11:13] LABS: LDL CHOLESTEROL (ONLY SJRH) 119 mg/dL (5-100)
[2021-06-09 11:15] LABS: HDL CHOLESTEROL 75 mg/dL (40-60)
[2021-06-09] MEDS: amLODIPine BESYLATE 5 MG TABLET (FP) PO SCH (16:14)
[2021-06-09 16:16] VITALS: BP 134/68; PULSE 69; TEMP 98.1
[2021-06-09] MEDS ORDERED: WARFARIN NA 3 MG TABLET PO SCH (18:00)
== END 2021-06-09 17:10 | disposition home or self-care (01) ==
LOC: JER 09:32 → JERBED 14:50 → J4W 06-09 01:36
PROVIDERS: ADMIT Internal Medicine; ATTEND Internal Medicine
DX: F41.9 Anxiety disorder, unspecified (principal); R07.89 Other chest pain; I82.409 Acute embolism and thrombosis of unspecified deep veins of unspecified lower extremity; I10 Essential (primary) hypertension; Z88.8 Allergy status to other drugs, medicaments and biological substances; Z88.2 Allergy status to sulfonamides
CPT/HCPCS: 36415; 71046-TC-FY; 78452-TC; 80053; 80061; 81003; 82550; 84484; 85025; 85610; 85730; 87086; 87186; 93005; 93010; 93017; 93306-TC; 99285-25; A9502; C9803; G0378; U0003; U0005

== ENCOUNTER 2022-01-02 10:20 | Day surgery (SDC) | payer OTHER, MEDICARE ==
[2022-01-02] MEDS ORDERED: ZOLEDRONIC ACID/MAN/WATER 5 MG/100 ML INFUS..BTL IVPB ONE (10:30)
[2022-01-02] MEDS ORDERED: ACETAMINOPHEN 325 MG TABLET (FP) ONE (10:46)
[2022-01-02 10:52] VITALS: BP 160/77; TEMP 97.9
[2022-01-02] MEDS ORDERED: ACETAMINOPHEN 325 MG TABLET (FP) PO ONE (11:00)
[2022-01-02 11:51] VITALS: PULSE 71; RESP 18
== END 2022-01-02 11:46 | disposition home or self-care (01) ==
LOC: FINFUSION 10:20 → FM/S 10:21 → FINFUSION 11:46
PROVIDERS: ATTEND Internal Medicine Endocrinology, Diabetes & Metabolism
PROC: 3E033GC Introduction of Other Therapeutic Substance into Peripheral Vein, Percutaneous Approach (ICD-10-PCS; principal; 2022-01-02)
DX: M81.0 Age-related osteoporosis without current pathological fracture (principal)
CPT/HCPCS: 96365; J3489

== ENCOUNTER 2022-04-01 11:30 | Emergency (ER) | payer OTHER, MEDICARE ==
[2022-04-01 11:41] VITALS: TEMP 98.3; BMI 20.1
[2022-04-01] MEDS ORDERED: ALBUTEROL SO4 2.5/IPRATROPIUM 0.5 INH SOL 3 ML VIAL.NEB. NEB ONE ×2 (12:10→12:27)
[2022-04-01 12:27] VITALS: BP 140/70; PULSE 62; RESP 16
[2022-04-01 12:36] LABS: HEMATOCRIT 43.2 % (32.4-45.2); HEMOGLOBIN 14.5 G/dL (10.7-15.3); MCH 30.1 pg (25.7-33.7); MCHC 33.6 g/dl (32.0-36.0); MEAN CELL VOLUME 89.9 fl (80-96); MEAN PLT VOLUME 7.2 fl (7.5-11.1); PLATELET COUNT 343.9 10^3/uL (134-434); RBC 4.81 10^6/uL (3.60-5.2); WHITE BLOOD COUNT 7.3 10^3/uL (4.0-10.8)
[2022-04-01 12:43] LABS: INR 2.65 (0.83-1.09); PROTHROMBIN TIME (PATIENT) 30.8 SEC (9.7-13.0)
[2022-04-01 12:47] LABS: CALCIUM 9.4 mg/dl (8.5-10); CREATININE 0.6 mg/dl (0.55-1.3)
== END 2022-04-01 13:45 | disposition home or self-care (01) ==
LOC: FER 11:30
PROC: 3E0F7GC Introduction of Other Therapeutic Substance into Respiratory Tract, Via Natural or Artificial Opening (ICD-10-PCS; principal; 2022-04-01)
DX: R05.8 Other specified cough (principal)
CPT/HCPCS: 0241U-QW; 36415; 71046-TC-FY; 80048; 85027; 85610; 99284-25

== ENCOUNTER 2023-01-14 10:14 | Emergency (ER) | payer OTHER, MEDICARE ==
[2023-01-14 10:18] VITALS: BP 178/74; PULSE 56; RESP 18; TEMP 97; BMI 20.9
[2023-01-14] MEDS ORDERED: METOCLOPRAMIDE HCL INJECTION 10 MG/2 ML VIAL IVPUSH ONE (11:00)
[2023-01-14] MEDS ORDERED: METOCLOPRAMIDE HCL INJECTION 10 MG/2 ML VIAL ONE (12:30)
[2023-01-14 12:51] LABS: BASO % 1.2 % (0-2.0); EOS % 2.4 % (0-4.5); HEMATOCRIT 46.6 % (32.4-45.2); HEMOGLOBIN 15.5 GM/dL (10.7-15.3); LYMPH % 32.4 % (8-40); MCH 30.1 pg (25.7-33.7); MCHC 33.2 g/dl (32.0-36.0); MEAN CELL VOLUME 90.4 fl (80-96); MEAN PLT VOLUME 7.8 fl (7.5-11.1); MONO % 8.1 % (3.8-10.2); NEUT % 55.9 % (42.8-82.8); PLATELET COUNT 308 10^3/uL (134-434); RBC 5.15 M/mm3 (3.60-5.2); RDW 12.9 % (11.6-15.6); WHITE BLOOD COUNT 6.7 K/mm3 (4.0-10.0)
[2023-01-14 12:56] LABS: INR 3.02 (0.83-1.09); PROTHROMBIN TIME (PATIENT) 34.7 SEC (9.7-13.0)
[2023-01-14 13:40] LABS: POTASSIUM 4.2 mmol/L (3.5-5.1)
[2023-01-14 13:43] LABS: ALBUMIN 3.4 g/dl (3.4-5.0); BLOOD UREA NITROGEN 13.2 mg/dL (7-18); CALCIUM 9.2 mg/dL (8.5-10.1)
[2023-01-14 13:46] LABS: CREATININE 0.6 mg/dL (0.55-1.3)
[2023-01-14 13:47] LABS: BILIRUBIN,TOTAL 0.3 mg/dL (0.2-1)
== END 2023-01-14 14:59 | disposition home or self-care (01) ==
LOC: JER 10:14
PROC: 3E033NZ Introduction of Analgesics, Hypnotics, Sedatives into Peripheral Vein, Percutaneous Approach (ICD-10-PCS; principal; 2023-01-14)
DX: H53.2 Diplopia (principal); G44.209 Tension-type headache, unspecified, not intractable; R00.1 Bradycardia, unspecified
CPT/HCPCS: 36415; 70450-TC; 80053; 85025; 85610; 93005; 93010; 99285-25

== ENCOUNTER 2023-02-27 16:00 | Inpatient (IN) | payer OTHER, MEDICARE ==
[2023-02-27] MEDS ORDERED: LISINOPRIL 20 MG TABLET PO ONE (17:16)
[2023-02-27] MEDS ORDERED: hydrALAZINE HCL 25 MG TABLET (FP) PO ONE (17:16)
[2023-02-27] MEDS ORDERED: LISINOPRIL 20 MG TABLET ONE (17:24)
[2023-02-27] MEDS ORDERED: hydrALAZINE HCL 25 MG TABLET (FP) ONE (17:24)
[2023-02-27 17:38] LABS: URINE APPEARANCE CLEAR; URINE BILIRUBIN NEGATIVE (NEGATIVE); URINE COLOR YELLOW; URINE GLUCOSE (UA) NEGATIVE (NEGATIVE); URINE KETONE NEGATIVE (NEGATIVE); URINE LEUK ESTERASE NEGATIVE (NEGATIVE); URINE NITRITE NEGATIVE (NEGATIVE); URINE PROTEIN NEGATIVE (NEGATIVE); URINE UROBILINOGEN 0.2 mg/dL (0.2-1.0)
[2023-02-27 17:39] LABS: BASO % 1.2 % (0-2.0); EOS % 2.5 % (0-4.5); HEMOGLOBIN 14.7 GM/dL (10.7-15.3); LYMPH % 27.1 % (8-40); MCH 30.1 pg (25.7-33.7); MCHC 34.3 g/dl (32.0-36.0); MEAN CELL VOLUME 87.8 fl (80-96); MEAN PLT VOLUME 7.5 fl (7.5-11.1); MONO % 12.7 % (3.8-10.2); NEUT % 56.5 % (42.8-82.8); PLATELET COUNT 327 10^3/uL (134-434); RDW 13.5 % (11.6-15.6); WHITE BLOOD COUNT 6.6 K/mm3 (4.0-10.0)
[2023-02-27 17:49] LABS: INR 3.22 (0.83-1.09); POTASSIUM 3.6 mmol/L (3.5-5.1); PROTHROMBIN TIME (PATIENT) 36.9 SEC (9.7-13.0)
[2023-02-27 17:51] LABS: CALCIUM 8.7 mg/dL (8.5-10.1)
[2023-02-27 17:52] LABS: ACTIVATED PTT 43.9 SECONDS (25.2-36.5); ALBUMIN 3.3 g/dl (3.4-5.0); BLOOD UREA NITROGEN 15.2 mg/dL (7-18); MAGNESIUM 1.8 mg/dL (1.8-2.4)
[2023-02-27 17:55] LABS: CREATININE 0.5 mg/dL (0.55-1.3); PHOSPHOROUS 2.6 mg/dL (2.5-4.9)
[2023-02-27 17:56] LABS: BILIRUBIN,TOTAL 0.2 mg/dL (0.2-1)
[2023-02-27 17:57] LABS: TOT PROT 6.6 g/dl (6.4-8.2)
[2023-02-27 18:00] LABS: N-TERMINAL BNP 317.7 pg/ml (5-450)
[2023-02-27 23:08] VITALS: RESP 20; BMI 19.6
[2023-02-28] MEDS ORDERED: hydrALAZINE HCL 25 MG TABLET (FP) PO PRN (00:06)
[2023-02-28] MEDS ORDERED: PATIENT'S OWN MEDICATION (NON-FORMULARY) (Zolpidem Tartrate [Ambien Cr] 12.5 MG Tab.Mphase PO SCH (00:08)
[2023-02-28] MEDS ORDERED: ALPRAZolam 0.25 MG TABLET PO SCH ×2 (00:15→00:45)
[2023-02-28] MEDS ORDERED: CARVEDILOL 6.25 MG TABLET (FP) PO SCH ×2 (00:16→10:00)
[2023-02-28] MEDS ORDERED: ZOLPIDEM TARTRATE 5 MG TABLET PO ONE (03:00)
[2023-02-28] MEDS ORDERED: PATIENT'S OWN MEDICATION (NON-FORMULARY) (Esomeprazole Magnesium [Nexium 24hr] 20 MG Capsu PO SCH (07:00)
[2023-02-28] MEDS: hydrALAZINE HCL 25 MG TABLET (FP) PO SCH ×3 (07:01→15:47)
[2023-02-28] MEDS: GABAPENTIN 300 MG CAPSULE PO SCH ×3 (07:01→15:48)
[2023-02-28 07:37] LABS: EOS % 2.2 % (0-4.5); HEMATOCRIT 44.1 % (32.4-45.2); LYMPH % 28.6 % (8-40); MCH 30.1 pg (25.7-33.7); MEAN CELL VOLUME 88.6 fl (80-96); MEAN PLT VOLUME 7.3 fl (7.5-11.1); MONO % 11.6 % (3.8-10.2); NEUT % 56.6 % (42.8-82.8); PLATELET COUNT 328 10^3/uL (134-434); RBC 4.98 M/mm3 (3.60-5.2); RDW 12.9 % (11.6-15.6); WHITE BLOOD COUNT 7.5 K/mm3 (4.0-10.0)
[2023-02-28 07:40] LABS: INR 2.18 (0.83-1.09); PROTHROMBIN TIME (PATIENT) 25.1 SEC (9.7-13.0)
[2023-02-28 07:52] LABS: POTASSIUM 4.1 mmol/L (3.5-5.1)
[2023-02-28 07:55] LABS: CALCIUM 8.9 mg/dL (8.5-10.1)
[2023-02-28 07:57] LABS: ALBUMIN 3.4 g/dl (3.4-5.0); MAGNESIUM 1.8 mg/dL (1.8-2.4)
[2023-02-28 07:59] LABS: BLOOD UREA NITROGEN 13.2 mg/dL (7-18); CREATININE 0.6 mg/dL (0.55-1.3)
[2023-02-28 08:01] LABS: BILIRUBIN,TOTAL 0.4 mg/dL (0.2-1); TOT PROT 6.6 g/dl (6.4-8.2)
[2023-02-28] MEDS ORDERED: ESCITALOPRAM OXALATE 10 MG TABLET PO SCH (10:00)
[2023-02-28] MEDS ORDERED: PANTOPRAZOLE 20 MG TABLET PO SCH (10:00)
[2023-02-28] MEDS ORDERED: amLODIPine BESYLATE 5 MG TABLET (FP) PO SCH (10:00)
[2023-02-28] MEDS ORDERED: LISINOPRIL 20 MG TABLET PO SCH (10:00)
[2023-02-28 15:13] VITALS: BP 134/67; PULSE 56; TEMP 98.3
[2023-02-28] MEDS ORDERED: ALBUTEROL SO4 2.5/IPRATROPIUM 0.5 INH SOL 3 ML VIAL.NEB. NEB SCH (16:00)
[2023-02-28] MEDS ORDERED: WARFARIN NA 3 MG TABLET PO SCH (18:00)
[2023-02-28] MEDS ORDERED: ATORVASTATIN CA 20 MG TABLET (FP) PO SCH (22:00)
== END 2023-02-28 17:44 | disposition home or self-care (01) | DRG 305 ==
LOC: JER 16:00 → JERBED 18:44 → OBSVTOIN 20:46 → J4W 21:49
PROVIDERS: ADMIT Internal Medicine; ATTEND Internal Medicine
DX: I16.0 Hypertensive urgency (principal); E78.00 Pure hypercholesterolemia, unspecified; K21.9 Gastro-esophageal reflux disease without esophagitis; F41.8 Other specified anxiety disorders; I48.91 Unspecified atrial fibrillation; J47.9 Bronchiectasis, uncomplicated; K57.90 Diverticulosis of intestine, part unspecified, without perforation or abscess without bleeding; I49.3 Ventricular premature depolarization; K59.00 Constipation, unspecified; M54.50 Low back pain, unspecified; R09.02 Hypoxemia; Z86.718 Personal history of other venous thrombosis and embolism
CPT/HCPCS: 0241U-QW; 36415; 71045-TC-FY; 71260-TC; 73030-TC-LT-FY; 80053; 81003; 83735; 83880; 84100; 84484; 85025; 85610; 85730; 87086; 93005; 93010; 93306-TC; 94761; 99285-25; G0378; Q9967

== ENCOUNTER 2023-06-10 09:12 | Day surgery (SDC) | payer OTHER, MEDICARE ==
[2023-06-10] MEDS ORDERED: ACETAMINOPHEN 325 MG TABLET (FP) PO ONE (09:30)
[2023-06-10] MEDS ORDERED: ZOLEDRONIC ACID/MAN/WATER 5 MG/100 ML INFUS..BTL IVPB ONE (10:00)
[2023-06-10 14:15] VITALS: RESP 18; TEMP 98.4
[2023-06-10 14:18] VITALS: BP 139/59; PULSE 45
== END 2023-06-10 11:00 | disposition home or self-care (01) ==
LOC: JINFUSION 09:12 → J7W 09:14 → JINFUSION 11:00
PROVIDERS: ATTEND Internal Medicine Endocrinology, Diabetes & Metabolism
PROC: 3E033GC Introduction of Other Therapeutic Substance into Peripheral Vein, Percutaneous Approach (ICD-10-PCS; principal; 2023-06-10)
DX: M81.0 Age-related osteoporosis without current pathological fracture (principal)
CPT/HCPCS: 96365; J3489

== ENCOUNTER 2023-08-12 13:17 | Emergency (ER) | payer OTHER, MEDICARE ==
[2023-08-12 13:23] VITALS: BP 172/63; PULSE 70; RESP 18; TEMP 98.4
[2023-08-12] MEDS ORDERED: ACETAMINOPHEN 500 MG TABLET (FP) ONE (14:05)
[2023-08-12] MEDS: ACETAMINOPHEN 500 MG TABLET (FP) PO ONE (14:06)
[2023-08-12 16:41] LABS: BASO % 0.8 % (0-2.0); EOS % 2.2 % (0-4.5); HEMATOCRIT 43.3 % (32.4-45.2); HEMOGLOBIN 14.5 GM/dL (10.7-15.3); LYMPH % 23.6 % (8-40); MCH 29.5 pg (25.7-33.7); MCHC 33.6 g/dl (32.0-36.0); MEAN CELL VOLUME 87.9 fl (80-96); MEAN PLT VOLUME 7.7 fl (7.5-11.1); MONO % 8.2 % (3.8-10.2); NEUT % 65.2 % (42.8-82.8); PLATELET COUNT 294 10^3/uL (134-434); RBC 4.92 M/mm3 (3.60-5.2); RDW 13.2 % (11.6-15.6); WHITE BLOOD COUNT 8.5 K/mm3 (4.0-10.0)
[2023-08-12 16:47] LABS: INR 2.12 (0.83-1.09); PROTHROMBIN TIME (PATIENT) 24.4 SEC (9.7-13.0)
[2023-08-12 16:49] LABS: ACTIVATED PTT 38.3 SECONDS (25.2-36.5)
[2023-08-12 17:08] LABS: CHLORIDE 104 mmol/L (98-107); POTASSIUM 3.9 mmol/L (3.5-5.1); SODIUM 139 mmol/L (136-145)
[2023-08-12 17:13] LABS: ALBUMIN 3.3 g/dl (3.4-5.0); ANION GAP 6 mmol/L (4-13); BLOOD UREA NITROGEN 19.5 mg/dL (7-18); CALCIUM 9.4 mg/dL (8.5-10.1); CO2 29 mmol/L (21-32); GLUCOSE,RANDOM 127 mg/dL (74-106)
[2023-08-12 17:15] LABS: URIC ACID 2.4 mg/dL (2.6-7.2)
[2023-08-12 17:16] LABS: CREATININE 0.6 mg/dL (0.55-1.3); SGOT/AST 23 U/L (15-37); SGPT/ALT 29 U/L (13-61)
[2023-08-12 17:17] LABS: TOT PROT 6.7 g/dl (6.4-8.2)
[2023-08-12 17:18] LABS: BILIRUBIN,TOTAL 0.3 mg/dL (0.2-1)
[2023-08-12 17:19] LABS: ALK PHOS 51 U/L (45-117)
[2023-08-12 17:41] LABS: ERYTHROCYTE SEDIMENTATION RATE 5 mm/hr (0-30)
== END 2023-08-12 18:09 | disposition home or self-care (01) ==
LOC: JER 13:17
DX: M79.671 Pain in right foot (principal); I83.813 Varicose veins of bilateral lower extremities with pain; R22.43 Localized swelling, mass and lump, lower limb, bilateral; M79.672 Pain in left foot
CPT/HCPCS: 36415; 73610-TC-LT-FY; 73630-TC-LT; 80053; 84550; 85025; 85610; 85651; 85730; 86140; 93971-TC; 99285-25

== ENCOUNTER 2024-07-31 11:26 | Day surgery (SDC) | payer OTHER, MEDICARE ==
[2024-07-31] MEDS: ACETAMINOPHEN 325 MG TABLET (FP) PO ONE (12:07)
[2024-07-31] MEDS: ZOLEDRONIC ACID/MAN/WATER 5 MG/100 ML INFUS..BTL IVPB ONE (12:14)
[2024-07-31 12:59] VITALS: BP 120/69; PULSE 66; RESP 18
== END 2024-07-31 13:00 | disposition home or self-care (01) ==
LOC: FINFUSION 11:26 → FM/S 11:29 → FINFUSION 13:00
PROVIDERS: ATTEND Internal Medicine Endocrinology, Diabetes & Metabolism
PROC: 3E033GC Introduction of Other Therapeutic Substance into Peripheral Vein, Percutaneous Approach (ICD-10-PCS; principal; 2024-07-31)
DX: M81.8 Other osteoporosis without current pathological fracture (principal)
CPT/HCPCS: 96365; J3489